=== PATIENT | male | born 1960 | race Caucasian/White ===

== ENCOUNTER 2020-04-05 13:28 | Inpatient (IN) ==
[~2020-04-05 13:28] MED LIST: KETAMINE HCL 50 MG/ML ML IV PRN; MIDAZOLAM 2 MG/2 ML VIAL IV SCH; PROPOFOL 200 MG/20 ML VIAL IV SCH
[2020-04-05] MEDS ORDERED: METHYLENE BLUE 50 MG/10 ML AMPUL ONE (14:39)
[2020-04-05] MEDS ORDERED: ONDANSETRON 4 MG/2 ML VIAL IV ONE (16:36)
[2020-04-05] MEDS ORDERED: HYDROmorphone 1 MG/ML SYRINGE IV ONE (16:36)
[2020-04-05] MEDS: LACTATED RINGERS 1,000 ML IV SCH (16:43)
[2020-04-05] MEDS ORDERED: ONDANSETRON 4 MG/2 ML VIAL ONE ×2 (16:46→19:20)
[2020-04-05] MEDS ORDERED: HYDROmorphone 1 MG/ML SYRINGE ONE (16:46)
[2020-04-05] MEDS ORDERED: LEVOFLOXACIN 500 MG/100 ML BAG IV ONE (17:16)
[2020-04-05] MEDS ORDERED: metroNIDAZOLE 500 MG/100 ML BAG IV ONE (17:16)
--- NOTE | 2020-04-05 17:17 | Colonoscopy Procedure Note ---
Colonoscopy Procedure Notes Procedure Information Patient information: Note initiated : 04/05/20 at 5:13 pm Service Date: 04.05.2020 Patient: Felix Mancera 59 y/o M admitted on for Colonoscopy. Pre-op diagnosis general: Screening. Post-op diagnosis general: Recurrent large villous adenoma. Procedure: Colonoscopy with Polypectomy Snare Procedure narrative: The procedure, alternatives and risks were discussed with the patient and the patient's questions were answered. With endoscopist administered intravenous sedation, the Olympus colonoscope was introduced into the rectum and advanced to the cecum. Ileocecal valve was identified, intubated, and several centimeters of the terminal ileum were examined. There was a recurrent large villous adenoma in the ascending colon. The base was injected with heptastarch and resected piecemeal with a snare using cautery. Hot biopsy forcep technique was required for piecemeal resection. APC coagulation was performed. The resection was complex. Assessment: Recurrent large villous adenoma. Unfortunately, the patient suffered a perforation following polypectomy. Dr. Cory Hung, surgeon, was consulted urgently and will admit the patient for right hemicolectomy. Image Colon: 1. Recurrent, large right colon villous adenoma.
--- NOTE | 2020-04-05 17:17 | Cat Scan Report ---
CLINICAL INFORMATION: Abdominal pain and distention following colonoscopy COMPARISON: None. TECHNIQUE: 0.625 mm helical slices were obtained from the mid heart through the subtrochanteric regions. Following reconstruction, 2.5 mm sagittal, coronal and axial reformatted images were processed and reviewed at bone and soft tissue windows.The exam was performed using radiation dose optimization techniques including, but not limited to, automated exposure control, adjustment of the mA and/or kV according to patient size and use of iterative reconstruction technique. FINDINGS: Lung bases show subsegmental atelectasis. No effusion. The visualized heart is normal. Abdominal images show the noncontrasted gallbladder and bile ducts, liver, both kidneys, adrenal glands, spleen, pancreas and aorta to be normal in size configuration and attenuation without focal lesion. There is no free fluid or adenopathy. Pelvic images show urinary bladder is normal. The prostate is mildly enlarged with central prostatic calcification. The seminal vesicles are normal. Large amount of free air seen throughout the anterior intraperitoneal cavity of the abdomen and pelvis. Findings are compatible with colonic perforation likely the transverse or mid sigmoid colon. Exact site of perforation is indeterminate. The remainder of the colon small bowel and stomach are normal. Bone windows show no osseous abnormality. IMPRESSION: 1. Large amount of free intraperitoneal air throughout the anterior abdomen and pelvis. Suspect colonic perforation likely the proximal sigmoid or the mid transverse segment. Site of perforation is not identified. Interpreted and Authenticated by: Virgilio Calero 04/05/20
[2020-04-05] MEDS ORDERED: HYDROmorphone 1 MG/ML SYRINGE IV PRN (17:40)
--- NOTE | 2020-04-05 18:19 | General Surg History&Physical ---
HPI History of Present Illness Patient information: Note initiated : 04/05/20 at 6:11 pm Service Date, if different from initiated Date: [] Patient: Felix Mancera a 59 y/o M admitted on for Colonoscopy. Chief Complaint: [perforated viscus] Chief complaint: free air of the abdomen History of present illness: Mr. Mancera is a 59 year old M WHO IS STATUS POST colonoscopy with biopsy of the right sided colon mass about 3 hours ago. He developed severe abdominal pain and a follow-up CT shows massive free air. 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 He was told to follow-up in 3 years. He had follow-up colonoscopy done today and the tumor was larger. He had multiple biopsies done and this resulted in the perforation. It was recognized and confirmed by CT. Patient is counseled for emergent laparotomy with right colectomy. 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) Hearing loss (Chronic) Multiple allergies (Chronic) Capsulitis (Chronic) Depression (Chronic) Testosterone insufficiency (Chronic) H/O esophageal reflux (Chronic) Hypothyroidism (Chronic) Hyperlipidemia (Chronic) History of colonoscopy (Chronic Unknown) Depressive disorder (Chronic) MARVA (generalized anxiety disorder) (Chronic) Medical History Alcohol dependence (Resolved) Capsulitis (Chronic) Depressive disorder (Chronic) MARVA (generalized anxiety disorder) (Chronic) H/O esophageal reflux (Chronic) Hearing loss (Chronic) Hyperlipidemia (Chronic) Hypothyroidism (Chronic) Multiple allergies (Chronic) Testosterone insufficiency (Chronic) Surgical History History of colonoscopy (Chronic Unknown) 08/25/2012 Polyps Family History Father Alzheimer's disease Grandfather (paternal) Alzheimer's disease Mother Lymphoma, Onset Age: 67 Diabetes Heart disease Cancer Thyroid disorder Leukemia Grandfather Heart disease Maternal Sister Thyroid disorder Brother Stroke intracerebral bleed, alcoholic and smoker, age 61 Social History marital status: life partner occupational status: employed occupation: [employer] Controls physical activity: walking smoking status: Never smoker alcohol intake frequency: 0-2 drinks per day substance use type: does not use MEDS/ALLERGIES Home Medications and Allergies Home Medications Medication Instructions Recorded Confirmed Type vitamin E 200 unit capsule 200 unit PO QDAY 07/30/15 04/05/20 History atorvastatin 10 mg tablet 10 mg PO QDAY #90 tab 04/20/17 04/05/20 Rx bupropion HCl 150 mg tablet,12 hr 150 mg PO QDAY #90 tab 04/20/17 04/05/20 Rx sustained-release alprazolam 0.5 mg tablet 0.5 mg PO TID PRN #60 tab 06/15/17 04/05/20 Rx testosterone 50 mg/5 gram (1 %) 1 packet TRANSDERMA QAM #60 g 04/12/18 04/05/20 Rx transdermal gel levothyroxine 88 mcg tablet 88 mcg PO QDAY #90 tab 04/18/18 04/05/20 Rx Allergies Allergy/AdvReac Type Severity Reaction Status Date / Time Penicillins Allergy Unknown Other Verified 04/05/20 17:59 sertraline AdvReac Intermediate Unknown Uncoded 04/05/20 17:59 Physical Examination Vital Signs Vital signs: Temp Pulse Resp BP Pulse Ox 99.1 F H 86 16 131/71 94 04/05/20 14:20 04/05/20 17:50 04/05/20 17:50 04/05/20 17:50 04/05/20 17:50 General physical appearance General physical exam: well developed, well nourished, severe distress and severe pain Eyes Eye exam: PERRL and normal ocular movement ENT ENT exam: normal pinna, normal nares, normal mucosa and decreased hearing Head Head exam IM: Present atraumatic, normal inspection and normocephalic Neck Neck exam: no masses, no bruits, trachea midline, no lymphadenopathy and no venous distension Cardiovascular Cardiovascular exam IM: Present normal rate and rhythm, RRR, +S1 and +S2; Absent gallop and JVD Respiratory Respiratory exam: normal expansion, normal respiratory effort and clear to auscultation Abdomen Abdomen: Present tender and guarding (diffusely distended abdomen with tenderness and guarding and hypoactive bowel sounds) Integumentary Integumentary: Present no rash, no growths and no abnormal pigmentation Neurologic Neurologic: Present normal coordination and normal sensation Musculoskeletal Musculoskeletal: Present normal gait and normal posture Psychiatric Psychiatric: Present oriented to time, oriented to person, oriented to place, speech is normal and memory intact Results Labs Labs: All other labs normal. A/P Assessment and plan (1) Perforation of colon as colonoscopy complication: Status: Acute (2) Depression: Status: Chronic Qualifiers: Depression Type: major depressive disorder Major depression recurrence: recurrent Active/Remission status: in partial remission Qualified Code(s): F33.41 - Major depressive disorder, recurrent, in partial remission (3) H/O esophageal reflux: Status: Chronic (4) MARVA (generalized anxiety disorder): Status: Chronic Narrative A/P Narrative: patient is counseled for exploratory laparotomy. He has been given preoperative antibiotics. Preoperative labs, chest x-ray and EKG have been ordered. Time Spent With Patient Time: Total time spent is greater than 50% in coordination of care (as documented) at patient's floor/unit and/or counseling patient:
--- NOTE | 2020-04-05 18:51 | XRay Report ---
CLINICAL INFORMATION: PREOP COMPARISON: None. FINDINGS: Heart size, mediastinum and pulmonary vessels are normal. Is minor bibasilar atelectasis. No effusion. Large amount of subdiaphragmatic free air seen as before IMPRESSION: No acute pulmonary disease. Large amount of free intraperitoneal air compatible with colonic rupture Interpreted and Authenticated by: Virgilio Calero 04/05/20
[2020-04-05] MEDS ORDERED: PHENYLEPHRINE 10 MG/ML VIAL ONE (19:20)
[2020-04-05] MEDS ORDERED: ROCURONIUM 10 MG/ML ML IV ONE (19:20)
[2020-04-05] MEDS ORDERED: DEXAMETHASONE 10 MG/ML VIAL ONE (19:20)
[2020-04-05] MEDS ORDERED: KETAMINE 100 MG/ML ML ONE (19:20)
[2020-04-05] MEDS ORDERED: PROPOFOL 200 MG/20 ML VIAL IV ONE (19:20)
[2020-04-05] MEDS ORDERED: SUCCINYLCHOLINE 20 MG/ML ML IV ONE (19:20)
[2020-04-05] MEDS ORDERED: KETOROLAC 30 MG/ML VIAL ONE (19:20)
[2020-04-05] MEDS ORDERED: SUGAMMADEX SODIUM 200 MG/2 ML VIAL IV ONE (19:20)
[2020-04-05] MEDS ORDERED: LIDOCAINE HCL/PF 100 MG/5 ML SYRINGE IV ONE (19:20)
[2020-04-05] MEDS ORDERED: GLYCOPYRROLATE 0.2 MG/ML VIAL IV ONE (19:20)
[2020-04-05] MEDS ORDERED: MIDAZOLAM 5 MG/5 ML VIAL ONE (19:20)
[2020-04-05] MEDS ORDERED: fentaNYL 250 MCG/5 ML VIAL IV ONE (19:20)
[2020-04-05 19:31] LABS: Basophils # (Auto) 0.04 K/mcL (0.00-0.20); Basophils % (Auto) 0.3 % (0.0-2.0); Eosinophils # (Auto) 0.02 K/mcL (0.00-0.70); Eosinophils % (Auto) 0.2 % (0.0-7.0); Hemoglobin 19.2 g/dL (13.5-16.5); Lymphocytes # (Auto) 1.33 K/mcL (1.50-4.80); Lymphocytes % (Auto) 11.2 % (15.0-49.0); Mean Cell Volume 92.7 fL (80.0-100.0); Mean Corpuscular HGB Conc 33.1 g/dL (31.0-36.0); Mean Platelet Volume 10.4 fL (7.4-10.4); Monocytes # (Auto) 0.57 K/mcL (0.10-0.90); Monocytes % (Auto) 4.8 % (1.0-12.0); Neutrophils % (Auto) 83.5 % (38.0-78.0); Platelet Count 198 K/mcL (140-440); RBC 6.26 M/mcL (4.50-5.90); WBC 11.9 K/mcL (4.5-11.0)
[2020-04-05 19:41] LABS: Blood Urea Nitrogen 12 mg/dL (8-23); Calcium 9.4 mg/dL (8.6-10.4); Carbon Dioxide 25 mmol/L (22-30); Chloride 102 mmol/L (96-108); Glomerular Filtration Rate 49; Glucose 143 mg/dL (70-105)
[2020-04-05] MEDS ORDERED: ONDANSETRON 4 MG/2 ML VIAL IV PRN (21:23)
--- NOTE | 2020-04-05 21:23 | Brief Operative Note ---
Brief Operative Note Date of procedure: 04/05/20 Pre-op diagnosis: cecal perforation Post-op diagnosis: other (cecal perforation) Procedure: right colectomy Grafts/Implants: No (#10 NINFA DRAIN ) Anesthesia: GETA Findings: LARGE PERFORATION OF LATERAL CECUM ABOVE ILEOCECAL VALVE Complications: none Surgeon: Rosario Hung Estimated blood loss (cc): 50 Specimens Removed/Pathology: other (RIGHT COLON) Condition: stable Disposition: PACU
[2020-04-05] MEDS ORDERED: FLUMAZENIL 0.1 MG/ML ML IV PRN (21:28)
[2020-04-05] MEDS ORDERED: IPRATROPIUM/ALBUTEROL 3 ML AMPUL.NEB NEB PRN (21:28)
[2020-04-05] MEDS ORDERED: METHOCARBAMOL 1,000 MG/10 ML VIAL IV PRN (21:28)
[2020-04-05] MEDS ORDERED: NALOXONE HCL 0.4 MG/ML VIAL IV PRN (21:28)
[2020-04-05] MEDS ORDERED: PROMETHAZINE 25 MG/ML VIAL IV PRN (21:28)
[2020-04-05] MEDS ORDERED: LACTATED RINGERS 250 ML IV PRN (21:28)
[2020-04-05] MEDS ORDERED: ACETAMINOPHEN 1,000 MG/100 ML BOTTLE IV ONE (21:28)
[2020-04-05] MEDS ORDERED: 0.9 % SODIUM CHLORIDE 1,000 ML IV SCH (21:30)
[2020-04-05] MEDS ORDERED: LACTATED RINGERS 1,000 ML IV SCH (21:30)
[2020-04-05] MEDS ORDERED: IPRATROPIUM/ALBUTEROL 3 ML AMPUL.NEB NEB ONE (21:37)
[2020-04-05] MEDS: fentaNYL 100 MCG/2 ML VIAL IV PRN ×7 (21:38→22:37)
[2020-04-05] MEDS ORDERED: fentaNYL 100 MCG/2 ML VIAL IV ONE (21:44)
[2020-04-05] MEDS ORDERED: LEVOFLOXACIN 250 MG/50 ML BAG IV ONE (22:00)
[2020-04-05] MEDS ORDERED: LABETALOL 5 MG/ML ML IV PRN (22:20)
[2020-04-05] MEDS ORDERED: METOPROLOL TARTRATE 5 MG/5 ML VIAL IV PRN (22:20)
[2020-04-05] MEDS ORDERED: METOPROLOL TARTRATE 5 MG/5 ML VIAL IV ONE (22:32)
[2020-04-05] MEDS: 0.9 % SODIUM CHLORIDE 10 ML SYRINGE IV SCH (23:55)
[2020-04-05] MEDS: 0.9 % SODIUM CHLORIDE 1,000 ML IV SCH (23:55)
[2020-04-06] MEDS: METOCLOPRAMIDE 10 MG/2 ML VIAL IV SCH ×5 (00:35→23:54)
[2020-04-06] MEDS: metroNIDAZOLE 500 MG/100 ML BAG IV SCH ×5 (00:36→23:53)
[2020-04-06] MEDS: LACTATED RINGERS 1,000 ML IV SCH (01:08)
[2020-04-06] MEDS: 0.9 % SODIUM CHLORIDE 10 ML SYRINGE IV SCH ×3 (05:55→20:16)
[2020-04-06] MEDS: 0.9 % SODIUM CHLORIDE 1,000 ML IV SCH ×4 (05:55→21:00)
[2020-04-06 07:36] LABS: Basophils # (Auto) 0.01 K/mcL (0.00-0.20); Basophils % (Auto) 0.1 % (0.0-2.0); Eosinophils # (Auto) 0 K/mcL (0.00-0.70); Eosinophils % (Auto) 0 % (0.0-7.0); Hematocrit 50.7 % (41.0-55.0); Hemoglobin 16.7 g/dL (13.5-16.5); Lymphocytes # (Auto) 0.63 K/mcL (1.50-4.80); Lymphocytes % (Auto) 3.5 % (15.0-49.0); Mean Cell Volume 92.2 fL (80.0-100.0); Mean Corpuscular HGB Conc 32.9 g/dL (31.0-36.0); Monocytes # (Auto) 0.64 K/mcL (0.10-0.90); Monocytes % (Auto) 3.5 % (1.0-12.0); Neutrophils % (Auto) 92.9 % (38.0-78.0); Platelet Count 161 K/mcL (140-440); WBC 18.3 K/mcL (4.5-11.0)
[2020-04-06 08:36] LABS: ALT/SGPT 13 U/L (<40); AST/SGOT 18 U/L (<40); Albumin 3.5 gm/dL (3.2-5.2); Albumin/Globulin Ratio 1.5 (1.0-2.3); Alkaline Phosphatase 48 U/L (39-117); Bilirubin,Direct 0.4 mg/dL (<0.3); Bilirubin,Total 1.2 mg/dL (0.1-1.0); Blood Urea Nitrogen 20 mg/dL (8-23); Calcium 8.2 mg/dL (8.6-10.4); Carbon Dioxide 21 mmol/L (22-30); Chloride 105 mmol/L (96-108); Globulin 2.4 gm/dL (2.2-3.7); Glomerular Filtration Rate 46; Glucose 159 mg/dL (70-105); Lactate Dehydrogenase 210 U/L (135-225); Phosphorous 1.8 mg/dL (2.5-4.5); Triglycerides 50 mg/dL (<150); Uric Acid 7.1 mg/dL (2.5-8.0)
[2020-04-06] MEDS: HYDROmorphone 1 MG/ML SYRINGE IV PRN ×5 (09:44→23:54)
[2020-04-06] MEDS ORDERED: LEVOFLOXACIN 750 MG/150 ML BAG IV SCH (12:00)
--- NOTE | 2020-04-06 14:49 | General Surgery Progress Note ---
SUBJECTIVE Subjective Patient information: Note initiated : 04/06/20 at 2:48 pm Service Date, if different from initiated Date: [] Patient: Felix Mancera 59 y/o M admitted on 04/05/20 for Colonoscopy. Chief Complaint: [] Principal diagnosis: cecal perforation Interval history: patient is stable; vital signs have been good.he does not have any respiratory difficulty. His pain is controlled. He is advised to become more active and sitting up in the chair. He is also advised to use his is spirometer. White blood count 18.3, phosphorus 1.8, potassium 4.5, magnesium 2, BUN 20, creatinine 1.6. Constitutional Vitals: Vital Signs Temp Pulse Resp BP Pulse Ox 98.0 F 102 H 18 113/61 92 04/06/20 08:00 04/06/20 08:00 04/06/20 08:00 04/06/20 08:00 04/06/20 08:00 Period Temp Pulse Resp BP Sys/Kimble Pulse Ox Last 24 Hr 98.0 F-99.8 F 68-110 10-21 90-177/56-141 10-98 Intake and Output 04/06/20 04/06/20 04/06/20 05:59 13:59 21:59 Intake Total 302 1100 Output Total 180 200 Balance 122 900 Weight 211 lb 2 oz Intake & Output: Intake & Output 04/06/20 04/06/20 04/06/20 05:59 13:59 21:59 Intake Total 302 1100 Output Total 180 200 Balance 122 900 Weight 211 lb 2 oz Intake: IV 302 1100 Sodium Chloride 0.9% 1,000 ml @ 102 1000 150 mls/hr IV .Q6H40M [facility] Rx#: [id number] Tube Feeding 0 0 Output: Gastric Drainage 100 200 Right Nare 100 200 Drainage 40 RLQ ABD 40 Drainage 40 RLQ ABD 40 Other: Urine Appearance Clear Urine Color Dark Asuncion Urine Odor Strong Head Head exam: Present atraumatic, normal inspection and normocephalic Eye Eye exam: Present EOMI Pupils: Present PERRL ENT ENT exam: Present mucous membranes moist, normal exam and normal oropharynx Neck Neck exam: Present full ROM and normal inspection Respiratory Respiratory exam: Present normal respiratory exam and CTAB Cardiovascular Cardiovascular exam: Present normal rate and rhythm, RRR, +S1 and +S2; Absent JVD GI/Abdominal GI/Abdominal exam: Present normal bowel sounds, soft, distended and tenderness Extremities Exam Extremities exam: Present full ROM, normal inspection and neurovascular intact Back Exam Back exam: Present full ROM and normal inspection Neurological Exam Neurological exam: Present CN II-XII intact, normal gait, oriented X3 and reflexes normal; Absent motor sensory deficit Psychiatric Psychiatric exam: Present depressed, normal affect and normal mood Skin Skin exam: Present intact; Absent rash and urticaria A/P Assessment and plan (1) Perforation of colon as colonoscopy complication: Status: Acute (2) Depression: Status: Chronic Qualifiers: Depression Type: major depressive disorder Major depression recurrence: recurrent Active/Remission status: in partial remission Qualified Code(s): F33.41 - Major depressive disorder, recurrent, in partial remission (3) MARVA (generalized anxiety disorder): Status: Chronic Narrative A/P Narrative: patient is clinically stable. Will continue supportive care. Phosphorus will be replaced. Time Spent With Patient Time: Total time spent is greater than 50% in coordination of care (as documented) at patient's floor/unit and/or counseling patient:
[2020-04-06] MEDS: ACETAMINOPHEN 1,000 MG/100 ML BOTTLE IV PRN ×2 (14:51→21:01)
[2020-04-06] MEDS ORDERED: POTASSIUM PHOSPHATE 40 MEQ in DEXTROSE 5% IN WATER 500 ML IV ONE (15:00)
[2020-04-07] MEDS ORDERED: 0.9 % SODIUM CHLORIDE 250 ML IV SCH ×3 (01:45→07:35)
[2020-04-07] MEDS: HYDROmorphone 1 MG/ML SYRINGE IV PRN ×5 (02:07→23:17)
--- NOTE | 2020-04-07 02:32 | General Surgery Progress Note ---
SUBJECTIVE Subjective Patient information: Note initiated : 04/07/20 at 2:30 am Service Date, if different from initiated Date: [] Patient: Felix Mancera 59 y/o M admitted on 04/05/20 for Colonoscopy. Chief Complaint: [] Principal diagnosis: cecal perforation;post operative hemorrhage Interval history: I was contacted by the charge nurse because patient had had increased output of heavy bloody drainage through his [place] which is in the right gutter. When seen earlier today he had some purulent and serosanguineous drainage. Since 2200 hrs. He has documented 600 cc of her blood. He has also become tachycardic. Blood pressure is 95/60. Patient is advised that he needs to be reexplored for control of bleeding. He had a hemoglobin of 16, so I will hold off given him O- blood, but he he has been typed and cross for 4 units of packed red cells. His INR is normal. Patient does not complain of any increased pain. Constitutional Vitals: Vital Signs Temp Pulse Resp BP Pulse Ox 97.7 F 136 H 16 95/60 92 04/07/20 02:00 04/07/20 02:00 04/07/20 02:00 04/07/20 02:00 04/07/20 02:00 Period Temp Pulse Resp BP Sys/Kimble Pulse Ox Last 24 Hr 97.7 F-99.7 F 95-155 14-18 88-144/60-78 86-96 Intake and Output 04/06/20 04/06/20 04/07/20 13:59 21:59 05:59 Intake Total 1100 1590 Output Total 921 303 7829 Balance 900 1160 -1480 Weight 209 lb 1.6 oz Patient Weight 04/07/20 05:59 Weight 209 lb 1.6 oz Intake & Output: Intake & Output 04/06/20 04/06/20 04/07/20 13:59 21:59 05:59 Intake Total 1100 1590 Output Total 880 628 6369 Balance 900 1160 -1480 Weight 209 lb 1.6 oz Intake: IV 1100 1350 Sodium Chloride 0.9% 1,000 ml @ 1000 1000 150 mls/hr IV .Q6H40M [facility] [place] Rx#: [id number] Oral 240 Tube Feeding 0 0 Output: Gastric Drainage 200 400 200 Right Nare 200 400 200 Drainage 605 RLQ ABD 605 Drainage 30 RLQ ABD 30 Urine Catheter Amount 475 Void Amount 200 Other: Urine Appearance Clear Clear Uretheral ([place]) Clear Urine Color Dark Asuncion Dark Asuncion Uretheral ([place]) Dark Asuncion Urine Odor Strong Eye Eye exam: Present EOMI Pupils: Present PERRL ENT ENT exam: Present mucous membranes moist, normal exam and normal oropharynx Neck Neck exam: Present full ROM and normal inspection Respiratory Respiratory exam: Present normal respiratory exam and CTAB Cardiovascular Cardiovascular exam: Present normal rate and rhythm, RRR, +S1 and +S2; Absent JVD GI/Abdominal GI/Abdominal exam: Present normal bowel sounds, distended and hypoactive bowel sounds Additional comments: bloody drainage from [place]More[place] in right lower quadrant. Extremities Exam Extremities exam: Present full ROM, normal inspection and neurovascular intact Neurological Exam Neurological exam: Present alert, CN II-XII intact and normal gait Psychiatric Psychiatric exam: Present normal affect and normal mood Skin Skin exam: Present normal color A/P Assessment and plan (1) Postoperative hemorrhage: Status: Acute Qualifiers: Surgical complication system/body Area: digestive system Procedure type: digestive system Qualified Code(s): K91.840 - Postprocedural hemorrhage of a digestive system organ or structure following a digestive system procedure (2) Perforation of colon as colonoscopy complication: Status: Acute Narrative A/P Narrative: patient is counseled for emergency exploratory laparotomy. We have 2 units of O- blood available, but since his hemoglobin was 16 and earlier today, will hold off to see what his actual hemoglobin is. He's been typed and crossed for 4 units of packed red cells and will be transfused as needed. Normal saline 1000 cc is given at an open rate. Time Spent With Patient Time: Total time spent is greater than 50% in coordination of care (as documented) at patient's floor/unit and/or counseling patient:
[2020-04-07 02:41] LABS: POC INR 1.6 (0.8-1.2); POC Pro Time 18.8 sec (11.9-14.5)
[2020-04-07] MEDS ORDERED: 0.9 % SODIUM CHLORIDE 1,000 ML IV ONE (02:43)
[2020-04-07] MEDS: 0.9 % SODIUM CHLORIDE 1,000 ML IV SCH ×5 (02:46→19:44)
[2020-04-07 02:57] LABS: POC Calcium, Ionized 1.01 mmEq/L (1.16-1.32); POC Creatinine 2.3 mg/dL (0.6-1.2); POC Potassium 5.2 mEql/L (3.3-5.1)
[2020-04-07 03:14] LABS: Hemoglobin 13.4 g/dL (13.5-16.5)
[2020-04-07] MEDS ORDERED: PHENYLEPHRINE 10 MG/ML VIAL ONE (03:30)
[2020-04-07] MEDS ORDERED: TRANEXAMIC ACID 1,000 MG/10 ML VIAL IV ONE (03:30)
[2020-04-07] MEDS ORDERED: KETAMINE 100 MG/ML ML ONE (03:30)
[2020-04-07] MEDS ORDERED: fentaNYL 250 MCG/5 ML VIAL IV ONE (03:30)
[2020-04-07] MEDS ORDERED: VASOPRESSIN 20 UNIT/ML VIAL ONE (03:30)
[2020-04-07] MEDS ORDERED: ONDANSETRON 4 MG/2 ML VIAL ONE (03:30)
[2020-04-07] MEDS ORDERED: PROPOFOL 200 MG/20 ML VIAL IV ONE (03:30)
[2020-04-07] MEDS ORDERED: HETASTARCH 6% 500 ML BAG IV ONE (03:30)
[2020-04-07] MEDS ORDERED: GLYCOPYRROLATE 0.2 MG/ML VIAL IV ONE (03:30)
[2020-04-07] MEDS ORDERED: DEXAMETHASONE 10 MG/ML VIAL ONE (03:30)
[2020-04-07] MEDS ORDERED: ROCURONIUM 10 MG/ML ML IV ONE (03:30)
[2020-04-07] MEDS ORDERED: LIDOCAINE HCL/PF 100 MG/5 ML SYRINGE IV ONE (03:30)
[2020-04-07] MEDS ORDERED: LABETALOL 5 MG/ML ML IV PRN (05:01)
[2020-04-07] MEDS ORDERED: fentaNYL 100 MCG/2 ML VIAL IV PRN (05:01)
[2020-04-07] MEDS ORDERED: BENZOCAINE/MENTHOL 1 LOZENGE PO PRN (05:01)
[2020-04-07] MEDS ORDERED: HYDROmorphone 0.5 MG/0.5 ML SYRINGE IV PRN (05:01)
[2020-04-07] MEDS ORDERED: IPRATROPIUM/ALBUTEROL 3 ML AMPUL.NEB NEB PRN (05:01)
[2020-04-07] MEDS ORDERED: NALOXONE HCL 0.4 MG/ML VIAL IV PRN (05:01)
[2020-04-07] MEDS ORDERED: METHOCARBAMOL 1,000 MG/10 ML VIAL IV PRN (05:01)
[2020-04-07] MEDS ORDERED: FLUMAZENIL 0.1 MG/ML ML IV PRN (05:01)
[2020-04-07] MEDS ORDERED: LACTATED RINGERS 250 ML IV PRN (05:01)
[2020-04-07] MEDS ORDERED: METOPROLOL TARTRATE 5 MG/5 ML VIAL IV PRN (05:01)
[2020-04-07] MEDS ORDERED: LACTATED RINGERS 1,000 ML IV SCH (05:15)
[2020-04-07 05:39] LABS: POC Blood Urea Nitrogen 29 mg/dL (6-20); POC CO2 24 mmol/L (22-30); POC Chloride 107 mEq/L (96-108); POC Creatinine 2.2 mg/dL (0.6-1.2); POC Glucose, Random 156 mg/dL (70-105); POC Hematocrit 28 % (41-55); POC Potassium 6.1 mEql/L (3.3-5.1); POC Sodium 137 mEq/L (133-145)
--- NOTE | 2020-04-07 06:12 | Brief Operative Note ---
Brief Operative Note Date of procedure: 04/07/20 Pre-op diagnosis: POSTOPERATIVE HEMORRHAGE;HEMORRHAGIC ANEMIA Post-op diagnosis: other (POSTOPERATIVE ANEMIA ;HEMORRHAGIC ANEMIA ) Procedure: EXPLORATORY LAPAROTOMY WITH EVACUATION OF CLOT(750CC) Grafts/Implants: No (NINFA DRAIN X2) Anesthesia: GETA Findings: MAJOR CLOT OVER OMENTUM,IN LOWER ABDOMEN 'EXTENDING INTO PELVIS AND IN RIGHT GUTTER; PERIHEPATIC CLOT OVER RIGHT LOBE OF LIVER ;SMALL AMOUNT OF UNCLOTTED BLOOD IN LEFT UPPER QUADRANT WITH SMALL AMOUNT AROUND SPLEEN ;INTACT ANASTOMOSIS WITHOUT MAJOR BLEEDING NEAR ANASTOMOSIS ;MODERATE CLOT IN RIGHT GUTTER EXTENDING UP TO HEPATIC FLEXURE BUT NO FRESH BLEEDING ENCOUNTERED ALL OPERATIVE SPACES WERE EXPLORED BUT NO ACTIVE BLEEDING; ANASTOMOSIS OVERSEWN AND MESENTERIC DEFECT CLOSURE WAS REINFORCED;ALL STAPLED AND CAUTERIZED SURFACES WERE SUTURED FOR ASSURANCE; ENTIRE OMENTUM INSPECTED AND COPIOUSLY IRRIGATED ;RUQ,RIGHT GUTTER AND LUQ(PERISPLENIC AREA )DRAINED .HEMORRHAGIC INDURATION OF ANTIMESENTERIC SURFACE OF SPLENIC FLEXUREOF COLON ,AREA OF MID SIGMOID AND TRANSVERSE COLON BUT NO HEMATOMA OR ACTIVE BLEEDING.PERITONEAL CAVITY TOTALLY EXPLORED X 2HR WITHOUT FINDING OF ACTIVE BLEEDING. Complications: none Surgeon: Rosario Hung Estimated blood loss (cc): 50 Specimens Removed/Pathology: none sent Condition: stable Disposition: PACU
[2020-04-07] MEDS ORDERED: METOPROLOL TARTRATE 5 MG/5 ML VIAL IV ONE (06:25)
[2020-04-07] MEDS ORDERED: IPRATROPIUM/ALBUTEROL 3 ML AMPUL.NEB NEB ONE (06:53)
[2020-04-07 07:21] LABS: ALT/SGPT 9 U/L (<40); AST/SGOT 17 U/L (<40); Albumin/Globulin Ratio 1.1 (1.0-2.3); Alkaline Phosphatase 31 U/L (39-117); Bilirubin,Direct 0.4 mg/dL (<0.3); Bilirubin,Total 0.6 mg/dL (0.1-1.0); Blood Urea Nitrogen 28 mg/dL (8-23); Calcium 6.7 mg/dL (8.6-10.4); Carbon Dioxide 23 mmol/L (22-30); Chloride 107 mmol/L (96-108); Globulin 1.8 gm/dL (2.2-3.7); Glomerular Filtration Rate 33; Glucose 161 mg/dL (70-105); Lactate Dehydrogenase 113 U/L (135-225); Phosphorous 3.9 mg/dL (2.5-4.5); Triglycerides 65 mg/dL (<150); Uric Acid 5.9 mg/dL (2.5-8.0)
[2020-04-07] MEDS ORDERED: DEXTROSE 50% 50 ML VIAL IV ONE (07:29)
[2020-04-07] MEDS ORDERED: INSULIN REGULAR, HUMAN 1 UNIT/0.01 ML UNIT SQ ONE (07:31)
[2020-04-07] MEDS ORDERED: PROMETHAZINE 25 MG/ML VIAL IV PRN (07:35)
[2020-04-07] MEDS ORDERED: ONDANSETRON 4 MG/2 ML VIAL IV PRN (07:35)
[2020-04-07 07:47] LABS: Basophils # (Auto) 0.02 K/mcL (0.00-0.20); Basophils % (Auto) 0.1 % (0.0-2.0); Eosinophils # (Auto) 0 K/mcL (0.00-0.70); Eosinophils % (Auto) 0 % (0.0-7.0); Hematocrit 30.9 % (41.0-55.0); Hemoglobin 9.9 g/dL (13.5-16.5); Lymphocytes # (Auto) 0.64 K/mcL (1.50-4.80); Lymphocytes % (Auto) 3.5 % (15.0-49.0); Mean Cell Volume 96.9 fL (80.0-100.0); Mean Platelet Volume 11.7 fL (7.4-10.4); Monocytes # (Auto) 0.89 K/mcL (0.10-0.90); Monocytes % (Auto) 4.8 % (1.0-12.0); Neutrophils % (Auto) 91.6 % (38.0-78.0); Platelet Count 131 K/mcL (140-440); RBC 3.19 M/mcL (4.50-5.90); Red Cell Distribution Width 12.1 % (11.5-14.5); WBC 18.5 K/mcL (4.5-11.0)
[2020-04-07] MEDS: metroNIDAZOLE 500 MG/100 ML BAG IV SCH ×4 (08:23→19:42)
[2020-04-07] MEDS: ACETAMINOPHEN 1,000 MG/100 ML BOTTLE IV PRN ×3 (09:37→23:24)
[2020-04-07] MEDS: 0.9 % SODIUM CHLORIDE 10 ML SYRINGE IV SCH ×3 (11:28→20:53)
[2020-04-07] MEDS: METOCLOPRAMIDE 10 MG/2 ML VIAL IV SCH ×4 (11:28→23:31)
[2020-04-07 13:35] LABS: ALT/SGPT 13 U/L (<40); AST/SGOT 29 U/L (<40); Alkaline Phosphatase 28 U/L (39-117); Bilirubin,Direct 0.5 mg/dL (<0.3); Bilirubin,Total 1.2 mg/dL (0.1-1.0); Blood Urea Nitrogen 29 mg/dL (8-23); Calcium 7.1 mg/dL (8.6-10.4); Carbon Dioxide 19 mmol/L (22-30); Chloride 108 mmol/L (96-108); Globulin 2.1 gm/dL (2.2-3.7); Glomerular Filtration Rate 40; Glucose 169 mg/dL (70-105); Lactate Dehydrogenase 211 U/L (135-225); Phosphorous 1.6 mg/dL (2.5-4.5); Triglycerides 60 mg/dL (<150); Uric Acid 6.4 mg/dL (2.5-8.0)
[2020-04-07 15:06] LABS: Basophils # (Auto) 0.01 K/mcL (0.00-0.20); Basophils % (Auto) 0.1 % (0.0-2.0); Eosinophils # (Auto) 0.35 K/mcL (0.00-0.70); Eosinophils % (Auto) 2.3 % (0.0-7.0); Hematocrit 35.6 % (41.0-55.0); Hemoglobin 11.8 g/dL (13.5-16.5); Lymphocytes # (Auto) 0.46 K/mcL (1.50-4.80); Lymphocytes % (Auto) 3.1 % (15.0-49.0); Mean Cell Volume 92.7 fL (80.0-100.0); Mean Corpuscular HGB Conc 33.1 g/dL (31.0-36.0); Mean Platelet Volume 11.3 fL (7.4-10.4); Monocytes # (Auto) 0.78 K/mcL (0.10-0.90); Monocytes % (Auto) 5.2 % (1.0-12.0); Neutrophils % (Auto) 89.3 % (38.0-78.0); Platelet Count 125 K/mcL (140-440); RBC 3.84 M/mcL (4.50-5.90); Red Cell Distribution Width 13.7 % (11.5-14.5); WBC 14.9 K/mcL (4.5-11.0)
--- NOTE | 2020-04-07 15:31 | General Surgery Progress Note ---
SUBJECTIVE Subjective Patient information: Note initiated : 04/07/20 at 3:29 pm Service Date, if different from initiated Date: [] Patient: Felix Mancera 59 y/o M admitted on 04/05/20 for Colonoscopy. Chief Complaint: [] Principal diagnosis: cecal perforation;post operative hemorrhage Interval history: patient has been stable for the past 8 hours. There is only 70 cc of thin sanguinous fluid total through his drains. He has received 2 units of packed red cells and is just starting to receive his FFP. He states that he feels much better. Constitutional Vitals: Vital Signs Temp Pulse Resp BP Pulse Ox 100.4 F H 114 H 14 112/66 92 04/07/20 15:02 04/07/20 15:02 04/07/20 15:02 04/07/20 15:02 04/07/20 15:02 Period Temp Pulse Resp BP Sys/Kimble Pulse Ox Last 24 Hr 97.7 F-101.7 F 97-155 8-18 87-148/52-113 88-96 Intake and Output 04/07/20 04/07/20 04/07/20 05:59 13:59 21:59 Intake Total 100 5859.0909 Output Total 1580 1040 Balance -1480 4819.0909 Intake & Output: Intake & Output 04/07/20 04/07/20 04/07/20 05:59 13:59 21:59 Intake Total 100 5859.0909 Output Total 1580 1040 Balance -1480 4819.0909 Intake: IV 100 2809.0909 Sodium Chloride 0.9% 1,000 ml @ 2000 Wide Open IV [facility] Rx#: [id number] Potassium Phosphate 40 Meq In 509.0909 Dextrose 5% in Water 500 ml @ 127.273 mls/hr IV [facility] Rx#: [id number] Tube Feeding 0 Blood Product 850 IV - Manual Only 2200 Output: Gastric Drainage 200 Right Nare 200 Drainage 605 RLQ ABD 605 Drainage 100 90 RLQ ABD 100 90 Urine Catheter Amount 475 950 Void Amount 200 Other: Urine Appearance Clear Clear Uretheral ([place]) Clear Urine Color Dark Asuncion Light Asuncion Uretheral ([place]) Dark Asuncion Urine Odor Strong Neck Neck exam: Present full ROM and normal inspection Respiratory Respiratory exam: Present normal respiratory exam; Absent rales, rhonchi and wheezes Cardiovascular Cardiovascular exam: Present RRR and tachycardia (heart rate 120); Absent JVD GI/Abdominal GI/Abdominal exam: Present diminished bowel sounds Additional comments: mild oozing from incision, but otherwise unremarkable; few active bowel sounds Extremities Exam Extremities exam: Present full ROM, normal inspection and neurovascular intact; Absent pedal edema Neurological Exam Neurological exam: Present CN II-XII intact, normal gait, oriented X3 and reflexes normal Psychiatric Psychiatric exam: Present normal affect and normal mood A/P Assessment and plan (1) Postoperative hemorrhage: Status: Acute Qualifiers: Surgical complication system/body Area: digestive system Procedure type: digestive system Qualified Code(s): K91.840 - Postprocedural hemorrhage of a digestive system organ or structure following a digestive system procedure (2) Perforation of colon as colonoscopy complication: Status: Acute Narrative A/P Narrative: patient is clinically stable. There is only 70 cc of output through his drains over the past 8 hours. He has not received his FFP so far. We will check a panel of low bleeding parameters including von Willebrand's factor, vitamin K level, factor VIII level and follow-up on PT, PTT and INR. Time Spent With Patient Time: Total time spent is greater than 50% in coordination of care (as documented) at patient's floor/unit and/or counseling patient:
[2020-04-07 19:43] LABS: Partial Thromboplastin Time 29.8 sec (20.0-37.0)
[2020-04-07 19:44] LABS: INR 1.3 (0.9-1.1); Prothrombin Time 16.2 sec (11.9-14.5)
[2020-04-08] MEDS: metroNIDAZOLE 500 MG/100 ML BAG IV SCH ×4 (02:00→20:17)
[2020-04-08] MEDS: HYDROmorphone 1 MG/ML SYRINGE IV PRN ×6 (04:04→22:17)
[2020-04-08] MEDS: 0.9 % SODIUM CHLORIDE 1,000 ML IV SCH ×4 (04:46→18:04)
[2020-04-08] MEDS: 0.9 % SODIUM CHLORIDE 10 ML SYRINGE IV SCH ×3 (06:00→20:18)
[2020-04-08] MEDS: METOCLOPRAMIDE 10 MG/2 ML VIAL IV SCH ×4 (06:00→23:55)
[2020-04-08 06:33] LABS: Basophils # (Auto) 0 K/mcL (0.00-0.20); Basophils % (Auto) 0 % (0.0-2.0); Eosinophils # (Auto) 0 K/mcL (0.00-0.70); Eosinophils % (Auto) 0 % (0.0-7.0); Hematocrit 26.3 % (41.0-55.0); Hemoglobin 8.7 g/dL (13.5-16.5); Lymphocytes # (Auto) 0.58 K/mcL (1.50-4.80); Lymphocytes % (Auto) 5.6 % (15.0-49.0); Mean Corpuscular HGB Conc 33.1 g/dL (31.0-36.0); Mean Platelet Volume 11.2 fL (7.4-10.4); Monocytes # (Auto) 0.61 K/mcL (0.10-0.90); Monocytes % (Auto) 5.9 % (1.0-12.0); Neutrophils % (Auto) 88.5 % (38.0-78.0); Platelet Count 109 K/mcL (140-440); RBC 2.86 M/mcL (4.50-5.90); Red Cell Distribution Width 13.6 % (11.5-14.5); WBC 10.3 K/mcL (4.5-11.0)
[2020-04-08 07:51] LABS: ALT/SGPT 16 U/L (<40); AST/SGOT 34 U/L (<40); Albumin 2.2 gm/dL (3.2-5.2); Alkaline Phosphatase 44 U/L (39-117); Bilirubin,Direct 0.2 mg/dL (<0.3); Bilirubin,Total 0.6 mg/dL (0.1-1.0); Blood Urea Nitrogen 23 mg/dL (8-23); Calcium 7.4 mg/dL (8.6-10.4); Carbon Dioxide 27 mmol/L (22-30); Chloride 110 mmol/L (96-108); Globulin 2.3 gm/dL (2.2-3.7); Glomerular Filtration Rate 59; Glucose 130 mg/dL (70-105); Lactate Dehydrogenase 229 U/L (135-225); Phosphorous 1.8 mg/dL (2.5-4.5); Triglycerides 63 mg/dL (<150); Uric Acid 5.3 mg/dL (2.5-8.0)
[2020-04-08] MEDS ORDERED: 0.9 % SODIUM CHLORIDE 250 ML IV SCH ×2 (09:15)
[2020-04-08] MEDS: LEVOFLOXACIN 750 MG/150 ML BAG IV SCH (09:26)
[2020-04-08] MEDS: PANTOPRAZOLE 40 MG VIAL IV SCH ×2 (11:41→18:03)
--- NOTE | 2020-04-08 12:37 | General Surgery Progress Note ---
SUBJECTIVE Subjective Patient information: Note initiated : 04/08/20 at 12:31 pm Service Date, if different from initiated Date: [] Patient: Felix Mancera 59 y/o M admitted on 04/05/20 for Colonoscopy. Chief Complaint: [] Principal diagnosis: cecal perforation;post operative hemorrhage Interval history: patient states that he feels much better. Vital signs have been stable. His pain is much improved. His hemoglobin has dropped to 8.7, but he only had 80 cc of serosanguineous output through his drains. He however has had some increased coffee-ground output through his nasogastric tube. This may account for his blood loss. Potassium 4.1, BUN 23, creatinine 1.3, white blood count 10.3, hemoglobin 8.7, hematocrit 26.9, platelets 109,000, phosphorus 1.8. Constitutional Vitals: Vital Signs Temp Pulse Resp BP Pulse Ox 99 F 119 H 20 149/82 92 04/08/20 12:00 04/08/20 03:50 04/08/20 12:00 04/08/20 12:00 04/08/20 12:00 Period Temp Pulse Resp BP Sys/Kimble Pulse Ox Last 24 Hr 98.5 F-101.3 F 98-120 12- 98-149/57-82 91-94 Intake and Output 04/07/20 04/08/20 04/08/20 21:59 05:59 13:59 Intake Total 2100 1150 0 Output Total 615 1455 800 Balance 1485 -305 -800 Weight 212 lb Intake & Output: Intake & Output 04/07/20 04/08/20 04/08/20 21:59 05:59 13:59 Intake Total 2100 1150 0 Output Total 615 1455 800 Balance 1485 -305 -800 Weight 212 lb Intake: IV 1300 1100 Sodium Chloride 0.9% 1,000 ml @ 1000 1000 150 mls/hr IV .Q6H40M [facility] Rx#: [id number] Oral 50 50 Tube Feeding 0 0 Blood Product 750 Output: Gastric Drainage 150 350 400 Right Nare 150 350 400 Drainage 105 Left HEATHER Drain 25 RLQ ABD 80 Drainage 65 Left HEATHER Drain 20 RLQ ABD 45 Urine Catheter Amount 400 1000 400 Other: Urine Appearance Clear Clear Clear Uretheral ([place]) Clear Urine Color Light Asuncion Dark Asuncion Straw Uretheral ([place]) Light Asuncion Urine Odor Strong Strong Head Head exam: Present atraumatic, normal inspection and normocephalic Eye Eye exam: Present EOMI Pupils: Present PERRL ENT ENT exam: Present mucous membranes moist, normal exam and normal oropharynx Neck Neck exam: Present full ROM and normal inspection Respiratory Respiratory exam: Present normal respiratory exam; Absent rales, rhonchi and wheezes Cardiovascular Cardiovascular exam: Present RRR and tachycardia (heart rate 120); Absent JVD GI/Abdominal GI/Abdominal exam: Present diminished bowel sounds Additional comments: mild oozing from incision, but otherwise unremarkable; few active bowel sounds Extremities Exam Extremities exam: Present full ROM, normal inspection and neurovascular intact; Absent pedal edema Back Exam Back exam: Present full ROM and normal inspection Neurological Exam Neurological exam: Present CN II-XII intact, normal gait, oriented X3 and reflexes normal Psychiatric Psychiatric exam: Present normal affect and normal mood Skin Skin exam: Present normal color A/P Assessment and plan (1) Postoperative hemorrhage: Status: Acute Qualifiers: Surgical complication system/body Area: digestive system Procedure type: digestive system Qualified Code(s): K91.840 - Postprocedural hemorrhage of a digestive system organ or structure following a digestive system procedure (2) Perforation of colon as colonoscopy complication: Status: Acute (3) MARVA (generalized anxiety disorder): Status: Chronic Narrative A/P Narrative: patient is clinically stable. However, I am still suspicious that he has some type of bleeding diathesis. He will receive 2 units of packed cells and 2 units of fresh plasma today. Though his platelets are at 109,000. If he has a platelet dysfunction. He may not be effective. I will monitor him to see if his hemoglobin drifts down more. If this happens. I will give him platelets since he has received at least 6 units of packed red cells. He is started on pantoprazole IV for possible GI bleeding. Time Spent With Patient Time: Total time spent is greater than 50% in coordination of care (as documented) at patient's floor/unit and/or counseling patient:
[2020-04-08] MEDS: ACETAMINOPHEN 1,000 MG/100 ML BOTTLE IV PRN ×2 (14:57→23:11)
[2020-04-09] MEDS: metroNIDAZOLE 500 MG/100 ML BAG IV SCH ×4 (02:16→21:25)
[2020-04-09] MEDS: HYDROmorphone 1 MG/ML SYRINGE IV PRN ×5 (02:17→21:32)
[2020-04-09] MEDS: 0.9 % SODIUM CHLORIDE 1,000 ML IV SCH ×4 (02:17→23:49)
[2020-04-09] MEDS: METOCLOPRAMIDE 10 MG/2 ML VIAL IV SCH ×4 (05:46→23:49)
[2020-04-09] MEDS: 0.9 % SODIUM CHLORIDE 10 ML SYRINGE IV SCH ×3 (05:47→20:19)
[2020-04-09] MEDS: ACETAMINOPHEN 1,000 MG/100 ML BOTTLE IV PRN ×3 (05:53→19:50)
[2020-04-09 06:40] LABS: Basophils # (Auto) 0.01 K/mcL (0.00-0.20); Basophils % (Auto) 0.1 % (0.0-2.0); Eosinophils # (Auto) 0.04 K/mcL (0.00-0.70); Eosinophils % (Auto) 0.4 % (0.0-7.0); Hematocrit 29.6 % (41.0-55.0); Hemoglobin 9.7 g/dL (13.5-16.5); Lymphocytes # (Auto) 0.63 K/mcL (1.50-4.80); Lymphocytes % (Auto) 6.7 % (15.0-49.0); Mean Cell Volume 91.4 fL (80.0-100.0); Mean Corpuscular HGB Conc 32.8 g/dL (31.0-36.0); Mean Platelet Volume 10.6 fL (7.4-10.4); Monocytes # (Auto) 0.55 K/mcL (0.10-0.90); Monocytes % (Auto) 5.8 % (1.0-12.0); Platelet Count 129 K/mcL (140-440); RBC 3.24 M/mcL (4.50-5.90); Red Cell Distribution Width 14.2 % (11.5-14.5); WBC 9.5 K/mcL (4.5-11.0)
[2020-04-09] MEDS: PANTOPRAZOLE 40 MG VIAL IV SCH ×2 (07:06→16:46)
[2020-04-09 07:21] LABS: ALT/SGPT 17 U/L (<40); AST/SGOT 27 U/L (<40); Albumin 2.5 gm/dL (3.2-5.2); Albumin/Globulin Ratio 0.9 (1.0-2.3); Alkaline Phosphatase 63 U/L (39-117); Bilirubin,Direct 0.2 mg/dL (<0.3); Bilirubin,Total 0.6 mg/dL (0.1-1.0); Blood Urea Nitrogen 22 mg/dL (8-23); Calcium 7.7 mg/dL (8.6-10.4); Carbon Dioxide 26 mmol/L (22-30); Chloride 111 mmol/L (96-108); Globulin 2.7 gm/dL (2.2-3.7); Glomerular Filtration Rate 81; Glucose 107 mg/dL (70-105); Lactate Dehydrogenase 204 U/L (135-225); Phosphorous 1.9 mg/dL (2.5-4.5); Triglycerides 86 mg/dL (<150); Uric Acid 5.2 mg/dL (2.5-8.0)
[2020-04-09 12:57] LABS: INR 1.2 (0.9-1.1); Prothrombin Time 15.7 sec (11.9-14.5)
--- NOTE | 2020-04-09 13:08 | Surgical Pathology Report ---
Histology Microscopic Diagnosis Specimen A- RIGHT COLON, TERMINAL ILEUM AND APPENDIX, SEGMENTAL RESECTION: -- RIGHT COLON: - PERFORATED COLON WITH TRANSMURAL ISCHEMIA AND ASSOCIATED SEROSITIS. - NO DYSPLASIA OR MALIGNANCY IDENTIFIED. - DISTAL MARGIN VIABLE -- TERMINAL ILEUM: - NO DIAGNOSTIC ALTERATIONS. - PROXIMAL MARGIN VIABLE. -- APPENDIX: - FIBROUS ABLATION OF APPENDICEAL TIP. -- LYMPH NODES, MESENTERIC: - FIVE LYMPH NODES WITH REACTIVE LYMPHOID HYPERPLASIA. (DMT:sln) Procedural Impression Cecal perforation. Gross Description Received in formalin designated as right cecal perforation, is a segment of cecum with attached terminal ileum and appendix. The cecal and terminal ileum margins are both stapled. The cecum measures 11 cm in length by up to 5 cm in diameter. The attached terminal ileum measures 2 cm in length by up to 2.2 cm in diameter. The serosa is mahmood-newell. Approximately 6 cm from the terminal ileum margin is a 2.2 cm area of possible perforation. This margin is inked black. The area of possible perforation is inked blue. The wall is up to 0.3 cm thick. The mucosa is newell and plicated. The area corresponding to the possible perforation is sunken with flattened folds. The appendix is mahmood-newell measuring 4.5 cm in length by up to 0.5 cm in diameter. There are six candidate lymph nodes identified measuring from 0.2 to 0.6 cm. Industrial Paramedic sections submitted in five cassettes: A1 - margins; A2 - retail account representative section of area of possible perforation; A3 - random sections; A4 - retail account representative section of appendix; A5 - retail account representative sections of candidate lymph nodes. (SCB:sln) Electronically Signed Allen Diggs MD, FCAP Electronically Signed 04/09/2020 1:07 PM
[2020-04-09] MEDS ORDERED: POTASSIUM PHOSPHATE 40 MEQ in DEXTROSE 5% IN WATER 500 ML IV ONE (14:17)
--- NOTE | 2020-04-09 14:17 | General Surgery Progress Note ---
SUBJECTIVE Subjective Patient information: Note initiated : 04/09/20 at 2:13 pm Service Date, if different from initiated Date: [] Patient: Felix Mancera 59 y/o M admitted on 04/05/20 for Colonoscopy. Chief Complaint: [] Principal diagnosis: cecal perforation;post operative hemorrhage Interval history: patient is stable. He has less pain. His output through his drains or more severe today than yesterday. He has good active bowel sounds has not had flatus. PT 15.7, INR 1.2 BUN 22, creatinine 1, phosphorus 1.9. White blood count 9.5, hemoglobin 9.7 platelets 129,000. Oxygen saturation 95%. HEATHER output for the past 12 hours with 100 cc of serous fluid without any major blood. Constitutional Vitals: Vital Signs Temp Pulse Resp BP Pulse Ox 98.0 F 96 H 18 135/79 96 04/09/20 08:00 04/09/20 08:00 04/09/20 08:00 04/09/20 08:00 04/09/20 08:00 Period Temp Pulse Resp BP Sys/Kimble Pulse Ox Last 24 Hr 98.0 F-99.4 F 96-113 14-20 126-139/74-87 90-96 Intake and Output 04/09/20 04/09/20 04/09/20 05:59 13:59 21:59 Intake Total 400 300 Output Total 1525 Balance -1125 300 Intake & Output: Intake & Output 04/09/20 04/09/20 04/09/20 05:59 13:59 21:59 Intake Total 400 300 Output Total 1525 Balance -1125 300 Intake: IV 100 300 Oral 300 Tube Feeding 0 Output: Gastric Drainage 350 Right Nare 350 Drainage 100 Left HEATHER Drain 40 RLQ ABD 60 Urine Catheter Amount 1075 Other: Urine Appearance Clear Urine Color Dark Yellow Head Head exam: Present atraumatic, normal inspection and normocephalic Eye Eye exam: Present EOMI Pupils: Present PERRL ENT ENT exam: Present mucous membranes moist, normal exam and normal oropharynx Respiratory Respiratory exam: Present normal respiratory exam; Absent rales, rhonchi and wheezes Cardiovascular Cardiovascular exam: Present RRR and tachycardia (heart rate 120); Absent JVD GI/Abdominal GI/Abdominal exam: Present diminished bowel sounds Additional comments: mild oozing from incision, but otherwise unremarkable; few active bowel sounds Extremities Exam Extremities exam: Present full ROM, normal inspection and neurovascular intact; Absent pedal edema Back Exam Back exam: Present full ROM and normal inspection Neurological Exam Neurological exam: Present CN II-XII intact, normal gait, oriented X3 and reflexes normal Skin Skin exam: Present normal color A/P Assessment and plan (1) Postoperative hemorrhage: Status: Acute Qualifiers: Surgical complication system/body Area: digestive system Procedure type: digestive system Qualified Code(s): K91.840 - Postprocedural hemorrhage of a digestive system organ or structure following a digestive system procedure (2) Perforation of colon as colonoscopy complication: Status: Acute Narrative A/P Narrative: discontinue [place] catheter. Clamp nasogastric tube. Potassium phosphate. 1 Time Spent With Patient Time: Total time spent is greater than 50% in coordination of care (as documented) at patient's floor/unit and/or counseling patient:
[2020-04-10] MEDS: HYDROmorphone 1 MG/ML SYRINGE IV PRN ×7 (01:06→21:54)
[2020-04-10] MEDS: metroNIDAZOLE 500 MG/100 ML BAG IV SCH ×4 (02:29→20:25)
[2020-04-10] MEDS: ACETAMINOPHEN 1,000 MG/100 ML BOTTLE IV PRN ×3 (03:30→19:08)
[2020-04-10] MEDS: 0.9 % SODIUM CHLORIDE 1,000 ML IV SCH ×3 (04:32→14:22)
[2020-04-10] MEDS: METOCLOPRAMIDE 10 MG/2 ML VIAL IV SCH ×3 (05:39→17:32)
[2020-04-10] MEDS: 0.9 % SODIUM CHLORIDE 10 ML SYRINGE IV SCH ×3 (05:47→21:54)
[2020-04-10] MEDS: PANTOPRAZOLE 40 MG VIAL IV SCH ×2 (07:06→17:32)
[2020-04-10 08:08] LABS: Basophils # (Auto) 0.02 K/mcL (0.00-0.20); Basophils % (Auto) 0.2 % (0.0-2.0); Eosinophils # (Auto) 0.11 K/mcL (0.00-0.70); Hematocrit 30.7 % (41.0-55.0); Hemoglobin 9.9 g/dL (13.5-16.5); Lymphocytes # (Auto) 0.54 K/mcL (1.50-4.80); Lymphocytes % (Auto) 4.8 % (15.0-49.0); Mean Cell Volume 91.9 fL (80.0-100.0); Mean Corpuscular HGB Conc 32.2 g/dL (31.0-36.0); Mean Platelet Volume 10.4 fL (7.4-10.4); Monocytes # (Auto) 0.56 K/mcL (0.10-0.90); Platelet Count 148 K/mcL (140-440); RBC 3.34 M/mcL (4.50-5.90); Red Cell Distribution Width 13.8 % (11.5-14.5); WBC 11.2 K/mcL (4.5-11.0)
[2020-04-10 08:41] LABS: ALT/SGPT 17 U/L (<40); AST/SGOT 20 U/L (<40); Albumin 2.7 gm/dL (3.2-5.2); Albumin/Globulin Ratio 1.1 (1.0-2.3); Alkaline Phosphatase 47 U/L (39-117); Bilirubin,Direct < 0.2 mg/dL (<0.3); Bilirubin,Total 0.5 mg/dL (0.1-1.0); Blood Urea Nitrogen 18 mg/dL (8-23); Calcium 7.8 mg/dL (8.6-10.4); Carbon Dioxide 25 mmol/L (22-30); Chloride 111 mmol/L (96-108); Globulin 2.5 gm/dL (2.2-3.7); Glomerular Filtration Rate 72; Glucose 115 mg/dL (70-105); Lactate Dehydrogenase 246 U/L (135-225); Phosphorous 2.1 mg/dL (2.5-4.5); Triglycerides 84 mg/dL (<150); Uric Acid 4.9 mg/dL (2.5-8.0)
[2020-04-10] MEDS: LEVOFLOXACIN 750 MG/150 ML BAG IV SCH (09:55)
--- NOTE | 2020-04-10 16:44 | General Surgery Progress Note ---
SUBJECTIVE Subjective Patient information: Note initiated : 04/10/20 at 4:42 pm Service Date, if different from initiated Date: [] Patient: Felix Mancera 59 y/o M admitted on 04/05/20 for Colonoscopy. Chief Complaint: [] Principal diagnosis: cecal perforation;post operative hemorrhage Interval history: patient feels much better. He has had flatus and does not complain of nausea. His incision shows some early drainage but he is afebrile.white blood count is 11.9 and hemoglobin 9.9 Constitutional Vitals: Vital Signs Temp Pulse Resp BP Pulse Ox 98.8 F 86 20 149/86 96 04/10/20 12:00 04/10/20 12:00 04/10/20 12:00 04/10/20 12:00 04/10/20 12:00 Period Temp Pulse Resp BP Sys/Kimble Pulse Ox Last 24 Hr 97.9 F-98.8 F 81-104 18-24 128-150/81-86 91-96 Intake and Output 04/10/20 04/10/20 04/10/20 05:59 13:59 21:59 Intake Total 450 1200 Output Total 965 100 405 Balance -515 1100 -405 Intake & Output: Intake & Output 04/10/20 04/10/20 04/10/20 05:59 13:59 21:59 Intake Total 450 1200 Output Total 965 100 405 Balance -515 1100 -405 Intake: IV 200 1200 Sodium Chloride 0.9% 1,000 ml @ 1000 150 mls/hr IV .Q6H40M [facility] Rx#: [id number] Oral 250 Tube Feeding 0 Output: Gastric Drainage 0 0 Right Nare 0 0 Drainage 65 105 Left HEATHER Drain 15 25 RLQ ABD 50 80 Urine Catheter Amount 100 Void Amount 900 300 Other: Urine Appearance Clear Clear Urine Color Tea Colored Urine Odor Normal Head Head exam: Present atraumatic, normal inspection and normocephalic Eye Eye exam: Present EOMI Pupils: Present PERRL ENT ENT exam: Present mucous membranes moist, normal exam and normal oropharynx Neck Neck exam: Present full ROM and normal inspection Respiratory Respiratory exam: Present normal respiratory exam; Absent rales, rhonchi and wheezes Cardiovascular Cardiovascular exam: Present RRR and tachycardia (heart rate 96); Absent JVD GI/Abdominal GI/Abdominal exam: Present normal bowel sounds, soft and diminished bowel sounds; Absent distended Additional comments: no oozing from incision, but otherwise unremarkable; few active bowel sounds; Extremities Exam Extremities exam: Present full ROM, normal inspection and neurovascular intact; Absent pedal edema Back Exam Back exam: Present full ROM and normal inspection Neurological Exam Neurological exam: Present CN II-XII intact, normal gait, oriented X3 and reflexes normal Psychiatric Psychiatric exam: Present normal affect and normal mood A/P Assessment and plan (1) Postoperative hemorrhage: Status: Acute Qualifiers: Surgical complication system/body Area: digestive system Procedure type: digestive system Qualified Code(s): K91.840 - Postprocedural hemorrhage of a digestive system organ or structure following a digestive system procedure (2) Perforation of colon as colonoscopy complication: Status: Acute Narrative A/P Narrative: d/c nasogastric tube clear liquids full liquids tomorrow 2view abdominal xrays in am Time Spent With Patient Time: Total time spent is greater than 50% in coordination of care (as documented) at patient's floor/unit and/or counseling patient:
[2020-04-11] MEDS: 0.9 % SODIUM CHLORIDE 1,000 ML IV SCH ×4 (00:11→22:45)
[2020-04-11] MEDS: METOCLOPRAMIDE 10 MG/2 ML VIAL IV SCH ×4 (00:12→18:04)
[2020-04-11] MEDS: HYDROmorphone 1 MG/ML SYRINGE IV PRN ×7 (00:13→20:37)
[2020-04-11] MEDS: ACETAMINOPHEN 1,000 MG/100 ML BOTTLE IV PRN ×3 (01:09→18:40)
[2020-04-11] MEDS: metroNIDAZOLE 500 MG/100 ML BAG IV SCH ×4 (01:45→20:30)
[2020-04-11] MEDS: 0.9 % SODIUM CHLORIDE 10 ML SYRINGE IV SCH ×3 (05:35→21:33)
[2020-04-11 06:37] LABS: Basophils # (Auto) 0.03 K/mcL (0.00-0.20); Basophils % (Auto) 0.2 % (0.0-2.0); Eosinophils # (Auto) 0.14 K/mcL (0.00-0.70); Eosinophils % (Auto) 0.9 % (0.0-7.0); Lymphocytes # (Auto) 0.59 K/mcL (1.50-4.80); Mean Cell Volume 91.7 fL (80.0-100.0); Mean Corpuscular HGB Conc 32.3 g/dL (31.0-36.0); Mean Platelet Volume 10.2 fL (7.4-10.4); Monocytes # (Auto) 0.79 K/mcL (0.10-0.90); Monocytes % (Auto) 5.3 % (1.0-12.0); Neutrophils % (Auto) 89.6 % (38.0-78.0); Platelet Count 171 K/mcL (140-440); RBC 3.38 M/mcL (4.50-5.90); Red Cell Distribution Width 13.8 % (11.5-14.5); WBC 14.8 K/mcL (4.5-11.0)
--- NOTE | 2020-04-11 07:44 | XRay Report ---
CLINICAL INFORMATION: FOR F/U OF ILEUS COMPARISON: Abdomen and pelvic CT 04/05/2020 FINDINGS: NG tube the gastric fundus. Stomach, small and large bowel are normal caliber. There are few air-fluid levels within the right colon however. No free air. Surgical drain seen in the right and left abdomen. IMPRESSION: Negative Interpreted and Authenticated by: Virgilio Calero 04/11/20
[2020-04-11] MEDS: PANTOPRAZOLE 40 MG VIAL IV SCH ×2 (07:46→18:04)
--- NOTE | 2020-04-11 10:24 | Surgical Pathology Report ---
Histology Microscopic Diagnosis Specimen A- COLON, ASCENDING POLYP, POLYPECTOMY: -- MULTIPLE PORTIONS OF TUBULOVILLOUS ADENOMA. (ACP:adj) Clinical History Screening. Procedural Impression Recurrent large villous adenoma. Gross Description The specimen is received in three containers all labeled ascending colon polyp, are multiple fragments of newell tissue ranging in size from 0.2 to 1.7 cm. The possible margins of the larger fragments are inked black and they are sectioned. Totally submitted in seven cassettes. (KGW:sln) Electronically Signed Raymundo Rg MD, FCAP Electronically Signed 04/11/2020 10:23 AM
[2020-04-11] MEDS ORDERED: VANCOMYCIN 1,000 MG in 0.9 % SODIUM CHLORIDE 250 ML IV SCH (15:30)
[2020-04-11] MEDS ORDERED: MEROPENEM 1 GM in 0.9 % SODIUM CHLORIDE 50 ML IV SCH (15:30)
[2020-04-11] MEDS ORDERED: VANCOMYCIN PER PHARMACY IV SCH (15:45)
[2020-04-11] MEDS: VANCOMYCIN 1,500 MG in 0.9 % SODIUM CHLORIDE 500 ML IV SCH (15:59)
--- NOTE | 2020-04-11 16:15 | General Surgery Progress Note ---
SUBJECTIVE Subjective Patient information: Note initiated : 04/11/20 at 4:12 pm Service Date, if different from initiated Date: [] Patient: Felix Mancera 59 y/o M admitted on 04/05/20 for Colonoscopy. Chief Complaint: [] Principal diagnosis: cecal perforation;post operative hemorrhage Interval history: patient has developed low-grade fever. He's also had some drainage from his incision. Drainage from his intraperitoneal drains in the right lobe quadrant and left upper quadrant or serosanguineous without evidence of purulence. White blood count 14.8, hemoglobin 10, hematocrit 31 Constitutional Vitals: Vital Signs Temp Pulse Resp BP Pulse Ox 98.6 F 91 H 20 138/83 93 04/11/20 12:00 04/11/20 12:00 04/11/20 12:00 04/11/20 12:00 04/11/20 12:00 Period Temp Pulse Resp BP Sys/Kimble Pulse Ox Last 24 Hr 97.9 F-100.7 F 65-106 18-20 126-160/77-90 91-93 Intake and Output 04/11/20 04/11/20 04/11/20 05:59 13:59 21:59 Intake Total 600 1680 200 Output Total 535 445 375 Balance 65 1235 -175 Weight 213 lb 1.6 oz Patient Weight 04/12/20 05:59 Weight 213 lb 1.6 oz Intake & Output: Intake & Output 04/11/20 04/11/20 04/11/20 05:59 13:59 21:59 Intake Total 600 1680 200 Output Total 535 445 375 Balance 65 1235 -175 Weight 213 lb 1.6 oz Intake: IV 200 1200 Sodium Chloride 0.9% 1,000 ml @ 1000 150 mls/hr IV .Q6H40M [facility] Rx#: [id number] Oral 400 480 200 Output: Drainage 60 45 Left HEATHER Drain 15 15 RLQ ABD 45 30 Void Amount 475 400 Stool 375 Other: Meal Jello Breakfast Lunch Percent of Meal Consumed 100% 100% 75% Feeding Ability Independent Independent Independent Urine Appearance Clear Urine Color Tea Colored Tea Colored Urine Odor Normal Stool Consistency Liquid # Bowel Movements 1 Head Head exam: Present atraumatic, normal inspection and normocephalic Eye Eye exam: Present EOMI Pupils: Present PERRL ENT ENT exam: Present mucous membranes moist, normal exam and normal oropharynx Neck Neck exam: Present full ROM and normal inspection Respiratory Respiratory exam: Present normal respiratory exam; Absent rales, rhonchi and wheezes Cardiovascular Cardiovascular exam: Present RRR and tachycardia (heart rate 120); Absent JVD GI/Abdominal GI/Abdominal exam: Present diminished bowel sounds Additional comments: mild oozing from incision, but otherwise unremarkable; few active bowel sounds Extremities Exam Extremities exam: Present full ROM, normal inspection and neurovascular intact; Absent pedal edema Neurological Exam Neurological exam: Present CN II-XII intact, normal gait, oriented X3 and reflexes normal Psychiatric Psychiatric exam: Present normal affect and normal mood Skin Skin exam: Present normal color A/P Assessment and plan (1) Postoperative hemorrhage: Status: Acute Qualifiers: Surgical complication system/body Area: digestive system Procedure type: digestive system Qualified Code(s): K91.840 - Postprocedural hemorrhage of a digestive system organ or structure following a digestive system procedure (2) Perforation of colon as colonoscopy complication: Status: Acute Narrative A/P Narrative: discontinue Levaquin. Meropenem 1 g IV every 8 hours. Vancomycin per pharmacy. Check labs in the morning Time Spent With Patient Time: Total time spent is greater than 50% in coordination of care (as documented) at patient's floor/unit and/or counseling patient:
[2020-04-11] MEDS: MEROPENEM 1 GM in 0.9 % SODIUM CHLORIDE 100 ML IV SCH (17:55)
[2020-04-12] MEDS: METOCLOPRAMIDE 10 MG/2 ML VIAL IV SCH ×5 (00:30→23:40)
[2020-04-12] MEDS: 0.9 % SODIUM CHLORIDE 1,000 ML IV SCH ×4 (00:33→20:15)
[2020-04-12] MEDS: VANCOMYCIN 1,500 MG in 0.9 % SODIUM CHLORIDE 500 ML IV SCH ×3 (00:54→21:17)
[2020-04-12] MEDS: MEROPENEM 1 GM in 0.9 % SODIUM CHLORIDE 100 ML IV SCH ×4 (02:30→21:24)
[2020-04-12] MEDS: metroNIDAZOLE 500 MG/100 ML BAG IV SCH ×4 (03:30→20:05)
[2020-04-12] MEDS: 0.9 % SODIUM CHLORIDE 10 ML SYRINGE IV SCH ×3 (05:35→21:34)
[2020-04-12 06:48] LABS: Basophils # (Auto) 0.03 K/mcL (0.00-0.20); Basophils % (Auto) 0.2 % (0.0-2.0); Eosinophils # (Auto) 0.15 K/mcL (0.00-0.70); Eosinophils % (Auto) 1.1 % (0.0-7.0); Hematocrit 31.1 % (41.0-55.0); Hemoglobin 10.3 g/dL (13.5-16.5); Lymphocytes # (Auto) 0.61 K/mcL (1.50-4.80); Lymphocytes % (Auto) 4.6 % (15.0-49.0); Mean Cell Volume 91.5 fL (80.0-100.0); Mean Corpuscular HGB Conc 33.1 g/dL (31.0-36.0); Mean Platelet Volume 10.3 fL (7.4-10.4); Monocytes % (Auto) 5.3 % (1.0-12.0); Neutrophils % (Auto) 88.8 % (38.0-78.0); Platelet Count 198 K/mcL (140-440); Red Cell Distribution Width 13.7 % (11.5-14.5); WBC 13.2 K/mcL (4.5-11.0)
[2020-04-12] MEDS: PANTOPRAZOLE 40 MG VIAL IV SCH ×2 (08:17→17:41)
[2020-04-12] MEDS: HYDROmorphone 1 MG/ML SYRINGE IV PRN ×3 (13:47→22:47)
--- NOTE | 2020-04-12 14:19 | General Surgery Progress Note ---
SUBJECTIVE Subjective Patient information: Note initiated : 04/12/20 at 2:15 pm Service Date, if different from initiated Date: [] Patient: Felix Mancera 59 y/o M admitted on 04/05/20 for Colonoscopy. Chief Complaint: [] Principal diagnosis: cecal perforation;post operative hemorrhage Interval history: patient states that he feels much better. He is tolerating full liquids and is having multiple bowel movements. He denies nausea or vomiting. He is afebrile. White blood count 13.2, hemoglobin 10.3, hematocrit 31.1. Constitutional Vitals: Vital Signs Temp Pulse Resp BP Pulse Ox 98.7 F 100 H 16 138/81 93 04/12/20 12:00 04/12/20 12:00 04/12/20 12:00 04/12/20 12:00 04/12/20 12:00 Period Temp Pulse Resp BP Sys/Kimble Pulse Ox Last 24 Hr 98 F-101.7 F 92-110 16-20 138-147/80-84 93-100 Intake and Output 04/12/20 04/12/20 04/12/20 05:59 13:59 21:59 Intake Total 2420 540 Output Total 895 201 Balance 1525 339 Intake & Output: Intake & Output 04/12/20 04/12/20 04/12/20 05:59 13:59 21:59 Intake Total 2420 540 Output Total 895 201 Balance 1525 339 Intake: IV 1700 200 Sodium Chloride 0.9% 1,000 ml @ 1000 150 mls/hr IV .Q6H40M [facility] Rx#: [id number] Merrem 1 gm In Sodium Chloride 100 100 0.9% 100 ml @ 100 mls/hr IV Q8H [facility] Rx#:[id number] Vancomycin 1,500 mg In Sodium 500 Chloride 0.9% 500 ml @ 333.3 mls/hr IV Q12H [facility] Rx#: [id number] Oral 720 340 Output: Drainage 45 Left HEATHER Drain 15 Right HEATHER Drain 30 Void Amount 600 201 Urine/Stool Mix 250 Other: Meal Lunch Percent of Meal Consumed 75% Feeding Ability Independent Urine Appearance Clear Clear Urine Color Light Asuncion Light Asuncion Urine Odor Normal Normal Stool Size Small Moderate Stool Color Brown Black Stool Consistency Soft Liquid # Voids 1 # Bowel Movements 1 1 Head Head exam: Present atraumatic, normal inspection and normocephalic Eye Eye exam: Present EOMI Pupils: Present PERRL ENT ENT exam: Present mucous membranes moist, normal exam and normal oropharynx Neck Neck exam: Present full ROM and normal inspection Respiratory Respiratory exam: Present normal respiratory exam; Absent rales, rhonchi and wheezes Cardiovascular Cardiovascular exam: Present RRR and tachycardia (heart rate 120); Absent JVD GI/Abdominal GI/Abdominal exam: Present diminished bowel sounds Additional comments: no oozing from incision, but otherwise unremarkable; few active bowel sounds Extremities Exam Extremities exam: Present full ROM, normal inspection and neurovascular intact; Absent pedal edema Back Exam Back exam: Present full ROM and normal inspection Neurological Exam Neurological exam: Present CN II-XII intact, normal gait, oriented X3 and reflexes normal Psychiatric Psychiatric exam: Present normal affect and normal mood Skin Skin exam: Present normal color A/P Assessment and plan (1) Postoperative hemorrhage: Status: Acute Qualifiers: Surgical complication system/body Area: digestive system Procedure type: digestive system Qualified Code(s): K91.840 - Postprocedural hemorrhage of a digestive system organ or structure following a digestive system procedure (2) Perforation of colon as colonoscopy complication: Status: Acute Narrative A/P Narrative: continue antibiotics. Advanced to regular diet. Check morning labs Time Spent With Patient Time: Total time spent is greater than 50% in coordination of care (as doc umented) at patient's floor/unit and/or counseling patient:
[2020-04-13] MEDS: metroNIDAZOLE 500 MG/100 ML BAG IV SCH ×4 (01:45→19:47)
[2020-04-13] MEDS: HYDROmorphone 1 MG/ML SYRINGE IV PRN ×3 (03:28→18:08)
[2020-04-13] MEDS: 0.9 % SODIUM CHLORIDE 1,000 ML IV SCH ×4 (04:51→17:40)
[2020-04-13] MEDS: 0.9 % SODIUM CHLORIDE 10 ML SYRINGE IV SCH ×3 (05:06→21:51)
[2020-04-13] MEDS: MEROPENEM 1 GM in 0.9 % SODIUM CHLORIDE 100 ML IV SCH ×3 (05:19→21:55)
[2020-04-13] MEDS: METOCLOPRAMIDE 10 MG/2 ML VIAL IV SCH ×4 (05:20→23:52)
[2020-04-13 06:46] LABS: Basophils # (Auto) 0.04 K/mcL (0.00-0.20); Basophils % (Auto) 0.4 % (0.0-2.0); Eosinophils # (Auto) 0.19 K/mcL (0.00-0.70); Eosinophils % (Auto) 1.8 % (0.0-7.0); Hematocrit 32.8 % (41.0-55.0); Hemoglobin 10.5 g/dL (13.5-16.5); Lymphocytes # (Auto) 0.75 K/mcL (1.50-4.80); Lymphocytes % (Auto) 7.2 % (15.0-49.0); Mean Cell Volume 92.1 fL (80.0-100.0); Mean Platelet Volume 10.3 fL (7.4-10.4); Monocytes # (Auto) 0.61 K/mcL (0.10-0.90); Monocytes % (Auto) 5.9 % (1.0-12.0); Neutrophils % (Auto) 84.7 % (38.0-78.0); Platelet Count 225 K/mcL (140-440); RBC 3.56 M/mcL (4.50-5.90); Red Cell Distribution Width 13.7 % (11.5-14.5); WBC 10.4 K/mcL (4.5-11.0)
[2020-04-13 07:09] LABS: ALT/SGPT 12 U/L (<40); AST/SGOT 15 U/L (<40); Albumin 2.2 gm/dL (3.2-5.2); Albumin/Globulin Ratio 0.9 (1.0-2.3); Alkaline Phosphatase 62 U/L (39-117); Bilirubin,Direct < 0.2 mg/dL (<0.3); Bilirubin,Total 0.3 mg/dL (0.1-1.0); Blood Urea Nitrogen 12 mg/dL (8-23); Calcium 7.4 mg/dL (8.6-10.4); Carbon Dioxide 21 mmol/L (22-30); Chloride 111 mmol/L (96-108); Globulin 2.4 gm/dL (2.2-3.7); Glomerular Filtration Rate 92; Glucose 117 mg/dL (70-105); Lactate Dehydrogenase 252 U/L (135-225); Phosphorous 2.3 mg/dL (2.5-4.5); Triglycerides 80 mg/dL (<150); Uric Acid 3.4 mg/dL (2.5-8.0)
[2020-04-13] MEDS: PANTOPRAZOLE 40 MG VIAL IV SCH ×2 (07:41→17:40)
[2020-04-13 08:52] LABS: Basophils # (Auto) 0.05 K/mcL (0.00-0.20); Basophils % (Auto) 0.5 % (0.0-2.0); Eosinophils # (Auto) 0.22 K/mcL (0.00-0.70); Eosinophils % (Auto) 2.3 % (0.0-7.0); Hematocrit 31.8 % (41.0-55.0); Hemoglobin 10.7 g/dL (13.5-16.5); Lymphocytes # (Auto) 0.79 K/mcL (1.50-4.80); Lymphocytes % (Auto) 8.4 % (15.0-49.0); Mean Cell Volume 89.8 fL (80.0-100.0); Mean Corpuscular HGB Conc 33.6 g/dL (31.0-36.0); Mean Platelet Volume 10.2 fL (7.4-10.4); Monocytes # (Auto) 0.53 K/mcL (0.10-0.90); Monocytes % (Auto) 5.6 % (1.0-12.0); Neutrophils % (Auto) 83.2 % (38.0-78.0); Platelet Count 233 K/mcL (140-440); RBC 3.54 M/mcL (4.50-5.90); Red Cell Distribution Width 13.7 % (11.5-14.5); WBC 9.5 K/mcL (4.5-11.0)
[2020-04-13] MEDS: VANCOMYCIN 1,500 MG in 0.9 % SODIUM CHLORIDE 500 ML IV SCH ×2 (10:50→20:54)
--- NOTE | 2020-04-13 13:27 | General Surgery Progress Note ---
SUBJECTIVE Subjective Patient information: Note initiated : 04/13/20 at 1:24 pm Service Date, if different from initiated Date: [] Patient: Felix Mancera 59 y/o M admitted on 04/05/20 for Colonoscopy. Chief Complaint: [] Principal diagnosis: cecal perforation;post operative hemorrhage Interval history: patient feels better. He still has erythema of his incision but there is minimal drainage. He had temperature to 100 last evening, but is afebrile at this time. White blood count is 9.5. Hemoglobin is changed. Constitutional Vitals: Vital Signs Temp Pulse Resp BP Pulse Ox 98.7 F 91 H 18 138/83 98 04/13/20 12:00 04/13/20 12:00 04/13/20 12:00 04/13/20 12:00 04/13/20 12:00 Period Temp Pulse Resp BP Sys/Kimble Pulse Ox Last 24 Hr 98.4 F-100.0 F 84-105 16-18 126-158/78-85 93-98 Intake and Output 04/12/20 04/13/20 04/13/20 21:59 05:59 13:59 Intake Total 1300 1700 840 Output Total 445 920 381 Balance 855 780 459 Weight 220 lb 3.2 oz 220 lb 3.2 oz Patient Weight 04/14/20 05:59 Weight 220 lb 3.2 oz Intake & Output: Intake & Output 04/12/20 04/13/20 04/13/20 21:59 05:59 13:59 Intake Total 1300 1700 840 Output Total 445 920 381 Balance 855 780 459 Weight 220 lb 3.2 oz 220 lb 3.2 oz Intake: IV 1300 1700 200 Sodium Chloride 0.9% 1,000 ml @ 1000 1000 150 mls/hr IV .Q6H40M [facility] Rx#: [id number] Merrem 1 gm In Sodium Chloride 100 100 100 0.9% 100 ml @ 100 mls/hr IV Q8H [facility] Rx#:[id number] Vancomycin 1,500 mg In Sodium 500 Chloride 0.9% 500 ml @ 333.3 mls/hr IV Q12H [facility] Rx#: [id number] Oral 640 Output: Drainage 120 28 Left HEATHER Drain 40 12 Right HEATHER Drain 80 16 Drainage 45 28 Left HEATHER Drain 15 Right HEATHER Drain 30 28 Void Amount 325 875 325 Other: Meal Dinner Lunch Percent of Meal Consumed 50% 50% Feeding Ability Independent Urine Appearance Clear Clear Urine Color Dark Yellow Dark Yellow Straw Urine Odor Strong Normal Normal Stool Size Small Stool Consistency Formed Loose # Voids 1 1 # Bowel Movements 1 Eye Eye exam: Present EOMI Pupils: Present PERRL ENT ENT exam: Present mucous membranes moist, normal exam and normal oropharynx Neck Neck exam: Present full ROM and normal inspection Respiratory Respiratory exam: Present normal respiratory exam; Absent rales, rhonchi and wheezes Cardiovascular Cardiovascular exam: Present RRR and tachycardia (heart rate 120); Absent JVD GI/Abdominal GI/Abdominal exam: Present diminished bowel sounds Additional comments: no oozing from incision, but otherwise unremarkable; few active bowel sounds Extremities Exam Extremities exam: Present full ROM, normal inspection and neurovascular intact; Absent pedal edema Neurological Exam Neurological exam: Present CN II-XII intact, normal gait, oriented X3 and reflexes normal Psychiatric Psychiatric exam: Present normal affect and normal mood A/P Assessment and plan (1) Postoperative hemorrhage: Status: Acute Qualifiers: Surgical complication system/body Area: digestive system Procedure type: digestive system Qualified Code(s): K91.840 - Postprocedural hemorrhage of a digestive system organ or structure following a digestive system procedure (2) Perforation of colon as colonoscopy complication: Status: Acute (3) Cellulitis, abdominal wall: Status: Acute Narrative A/P Narrative: continue present medications Time Spent With Patient Time: Total time spent is greater than 50% in coordination of care (as documented) at patient's floor/unit and/or counseling patient:
[2020-04-13] MEDS: oxyCODONE HCL 5 MG TABLET PO PRN ×2 (13:53→22:53)
[2020-04-13 18:27] LABS: Vitamin K-SO 56 pg/mL (130-1500)
[2020-04-14] MEDS: metroNIDAZOLE 500 MG/100 ML BAG IV SCH ×4 (01:58→20:10)
[2020-04-14] MEDS: 0.9 % SODIUM CHLORIDE 1,000 ML IV SCH ×3 (02:30→13:53)
[2020-04-14] MEDS: oxyCODONE HCL 5 MG TABLET PO PRN ×5 (03:34→22:44)
[2020-04-14] MEDS: 0.9 % SODIUM CHLORIDE 10 ML SYRINGE IV SCH ×4 (05:18→23:48)
[2020-04-14] MEDS: MEROPENEM 1 GM in 0.9 % SODIUM CHLORIDE 100 ML IV SCH ×3 (05:35→22:34)
[2020-04-14] MEDS: METOCLOPRAMIDE 10 MG/2 ML VIAL IV SCH ×4 (05:36→23:47)
[2020-04-14 07:22] LABS: ALT/SGPT 13 U/L (<40); AST/SGOT 19 U/L (<40); Albumin 2.3 gm/dL (3.2-5.2); Albumin/Globulin Ratio 0.9 (1.0-2.3); Alkaline Phosphatase 60 U/L (39-117); Bilirubin,Direct < 0.2 mg/dL (<0.3); Bilirubin,Total 0.3 mg/dL (0.1-1.0); Blood Urea Nitrogen 12 mg/dL (8-23); Calcium 7.5 mg/dL (8.6-10.4); Carbon Dioxide 22 mmol/L (22-30); Chloride 109 mmol/L (96-108); Globulin 2.6 gm/dL (2.2-3.7); Glomerular Filtration Rate 92; Glucose 109 mg/dL (70-105); Lactate Dehydrogenase 252 U/L (135-225); Phosphorous 2.2 mg/dL (2.5-4.5); Triglycerides 92 mg/dL (<150); Uric Acid 3.3 mg/dL (2.5-8.0)
[2020-04-14] MEDS: PANTOPRAZOLE 40 MG VIAL IV SCH ×2 (07:43→17:35)
[2020-04-14] MEDS: VANCOMYCIN 1,500 MG in 0.9 % SODIUM CHLORIDE 500 ML IV SCH ×2 (10:32→21:19)
--- NOTE | 2020-04-14 13:26 | General Surgery Progress Note ---
SUBJECTIVE Subjective Patient information: Note initiated : 04/14/20 at 1:21 pm Service Date, if different from initiated Date: [] Patient: Felix Mancera 59 y/o M admitted on 04/05/20 for Colonoscopy. Chief Complaint: [] Principal diagnosis: cecal perforation;post operative hemorrhage Interval history: patient states that he feels much better. He has been afebrile. The cellulitis. The patient's incision is improved. Discussed with patient the need to have PICC line placed for outpatient antibiotics. His vitamin K level is 56 which is low. Constitutional Vitals: Vital Signs Temp Pulse Resp BP Pulse Ox 98.3 F 95 H 18 137/81 94 04/14/20 11:27 04/14/20 11:27 04/14/20 11:27 04/14/20 11:27 04/14/20 11:27 Period Temp Pulse Resp BP Sys/Kimble Pulse Ox Last 24 Hr 97.7 F-99.6 F 82-95 18-18 126-137/76-86 93-94 Intake and Output 04/13/20 04/14/20 04/14/20 21:59 05:59 13:59 Intake Total 820 1940 1260 Output Total 473 578 7582 Balance -85 1090 -65 Weight 219 lb 4.8 oz Intake & Output: Intake & Output 04/13/20 04/14/20 04/14/20 21:59 05:59 13:59 Intake Total 820 1940 1260 Output Total 780 096 0205 Balance -85 1090 -65 Weight 219 lb 4.8 oz Intake: IV 300 1700 700 Sodium Chloride 0.9% 1,000 ml @ 1000 150 mls/hr IV .Q6H40M [facility] Rx#: [id number] Merrem 1 gm In Sodium Chloride 100 100 100 0.9% 100 ml @ 100 mls/hr IV Q8H [facility] Rx#:[id number] Vancomycin 1,500 mg In Sodium 500 500 Chloride 0.9% 500 ml @ 333.3 mls/hr IV Q12H NACHO Rx#: [id number] Oral 520 240 560 Output: Drainage 55 50 Left HEATHER Drain 20 15 Right HEATHER Drain 35 35 Void Amount [id number] Other: Meal Dinner Breakfast Percent of Meal Consumed 100% 75% Feeding Ability Independent Independent Urine Appearance Clear Clear Clear Urine Color Bright Yellow Straw Bright Yellow Urine Odor Normal Normal Head Head exam: Present atraumatic, normal inspection and normocephalic Eye Eye exam: Present EOMI Pupils: Present PERRL ENT ENT exam: Present mucous membranes moist, normal exam and normal oropharynx Neck Neck exam: Present full ROM and normal inspection Respiratory Respiratory exam: Present normal respiratory exam; Absent rales, rhonchi and wheezes Cardiovascular Cardiovascular exam: Present RRR and tachycardia (heart rate 120); Absent JVD GI/Abdominal GI/Abdominal exam: Present normal bowel sounds, soft and diminished bowel sounds; Absent distended Additional comments: no oozing from incision, but otherwise unremarkable; few active bowel sounds; Extremities Exam Extremities exam: Present full ROM, normal inspection and neurovascular intact; Absent pedal edema Back Exam Back exam: Present full ROM and normal inspection Neurological Exam Neurological exam: Present CN II-XII intact, normal gait, oriented X3 and reflexes normal Psychiatric Psychiatric exam: Present normal affect and normal mood Skin Skin exam: Present normal color A/P Assessment and plan (1) Cellulitis, abdominal wall: Status: Acute (2) Postoperative hemorrhage: Status: Acute Qualifiers: Surgical complication system/body Area: digestive system Procedure type: digestive system Qualified Code(s): K91.840 - Postprocedural hemorrhage of a digestive system organ or structure following a digestive system procedure (3) Perforation of colon as colonoscopy complication: Status: Acute Time Spent With Patient Time: Total time spent is greater than 50% in coordination of care (as documented) at patient's floor/unit and/or counseling patient:
[2020-04-14] MEDS: PHYTONADIONE 10 MG/ML AMPUL SQ SCH (14:37)
[2020-04-14] MEDS ORDERED: 0.9 % SODIUM CHLORIDE 10 ML SYRINGE IV PRN (17:46)
[2020-04-15] MEDS: PHYTONADIONE 10 MG/ML AMPUL SQ SCH (01:58)
[2020-04-15] MEDS: metroNIDAZOLE 500 MG/100 ML BAG IV SCH ×4 (01:59→20:08)
[2020-04-15] MEDS: oxyCODONE HCL 5 MG TABLET PO PRN ×5 (03:21→23:11)
[2020-04-15] MEDS: MEROPENEM 1 GM in 0.9 % SODIUM CHLORIDE 100 ML IV SCH ×3 (05:28→22:10)
[2020-04-15] MEDS: METOCLOPRAMIDE 10 MG/2 ML VIAL IV SCH ×4 (05:28→23:54)
[2020-04-15] MEDS: 0.9 % SODIUM CHLORIDE 10 ML SYRINGE IV SCH ×5 (05:37→22:05)
[2020-04-15 06:45] LABS: ALT/SGPT 15 U/L (<40); AST/SGOT 23 U/L (<40); Albumin 2.2 gm/dL (3.2-5.2); Albumin/Globulin Ratio 0.8 (1.0-2.3); Alkaline Phosphatase 60 U/L (39-117); Basophils # (Auto) 0.05 K/mcL (0.00-0.20); Basophils % (Auto) 0.4 % (0.0-2.0); Bilirubin,Direct < 0.2 mg/dL (<0.3); Bilirubin,Total 0.4 mg/dL (0.1-1.0); Blood Urea Nitrogen 12 mg/dL (8-23); Calcium 7.6 mg/dL (8.6-10.4); Carbon Dioxide 23 mmol/L (22-30); Chloride 107 mmol/L (96-108); Eosinophils # (Auto) 0.27 K/mcL (0.00-0.70); Eosinophils % (Auto) 2.4 % (0.0-7.0); Globulin 2.7 gm/dL (2.2-3.7); Glomerular Filtration Rate 92; Glucose 108 mg/dL (70-105); Hematocrit 34.5 % (41.0-55.0); Hemoglobin 11.1 g/dL (13.5-16.5); Lactate Dehydrogenase 221 U/L (135-225); Lymphocytes # (Auto) 0.98 K/mcL (1.50-4.80); Lymphocytes % (Auto) 8.6 % (15.0-49.0); Mean Corpuscular HGB Conc 32.2 g/dL (31.0-36.0); Monocytes # (Auto) 0.68 K/mcL (0.10-0.90); Neutrophils % (Auto) 82.6 % (38.0-78.0); Phosphorous 2.5 mg/dL (2.5-4.5); Platelet Count 289 K/mcL (140-440); RBC 3.79 M/mcL (4.50-5.90); Red Cell Distribution Width 13.7 % (11.5-14.5); Triglycerides 83 mg/dL (<150); Uric Acid 3.6 mg/dL (2.5-8.0); WBC 11.3 K/mcL (4.5-11.0)
[2020-04-15] MEDS: PANTOPRAZOLE 40 MG VIAL IV SCH ×2 (07:32→18:22)
[2020-04-15] MEDS: VANCOMYCIN 1,500 MG in 0.9 % SODIUM CHLORIDE 500 ML IV SCH ×2 (09:44→21:19)
--- NOTE | 2020-04-15 11:01 | XRay Report ---
HISTORY: PICC line insertion FINDINGS: A PICC line has been inserted through the right arm. The tip is near the boundary of the superior vena cava and right atrium. There is no widening of the mediastinum, pneumothorax or pleural effusion. The lungs are clear. Heart size is borderline enlarged but magnified. There is an abdominal surgical drain seen with the tip in the epigastrium. IMPRESSION: Well-positioned PICC line. Nursing was called with results Interpreted and Authenticated by: Dylan Rg 04/15/20
--- NOTE | 2020-04-15 14:42 | General Surgery Progress Note ---
SUBJECTIVE Subjective Patient information: Note initiated : 04/15/20 at 2:36 pm Service Date, if different from initiated Date: [] Patient: Felix Mancera 59 y/o M admitted on 04/05/20 for Colonoscopy. Chief Complaint: [] Principal diagnosis: supraventricular tachycardia Interval history: patient had PICC line placed and developed SVT with heart rate about 150. He did not have any chest pain, and he states that he feels well at this time. He denies shortness of breath. Heart rate is 96 and O2 sat 94% on room air. White blood count 11.3, hemoglobin 11.1, hematocrit 34.5. Constitutional Vitals: Vital Signs Temp Pulse Resp BP Pulse Ox 98.9 F 91 H 18 138/85 95 04/15/20 13:25 04/15/20 13:25 04/15/20 13:25 04/15/20 13:25 04/15/20 13:25 Period Temp Pulse Resp BP Sys/Kimble Pulse Ox Last 24 Hr 97.9 F-99.2 F 82-103 - 114-152/69-91 92-98 Intake and Output 04/15/20 04/15/20 04/15/20 05:59 13:59 21:59 Intake Total 900 1180 860 Output Total 935 800 Balance -35 1180 60 Weight 219 lb 11.2 oz Intake & Output: Intake & Output 04/15/20 04/15/20 04/15/20 05:59 13:59 21:59 Intake Total 900 1180 860 Output Total 935 800 Balance -35 1180 60 Weight 219 lb 11.2 oz Intake: IV 700 700 Merrem 1 gm In Sodium Chloride 100 100 0.9% 100 ml @ 100 mls/hr IV Q8H [facility] Rx#:[id number] Vancomycin 1,500 mg In Sodium 500 500 Chloride 0.9% 500 ml @ 333.3 mls/hr IV Q12H [facility] Rx#: [id number] Oral 200 480 860 Output: Drainage 35 Left HEATHER Drain 15 Right HEATHER Drain 20 Void Amount 900 800 Other: Meal Breakfast Lunch Percent of Meal Consumed 75% 75% Feeding Ability Independent Independent Urine Appearance Clear Clear Urine Color Bright Yellow Bright Yellow Urine Odor Normal Stool Size Small Stool Color Brown Stool Consistency Soft Loose # Voids 1 # Bowel Movements 1 Head Head exam: Present atraumatic, normal inspection and normocephalic Eye Eye exam: Present EOMI Pupils: Present PERRL ENT ENT exam: Present mucous membranes moist, normal exam and normal oropharynx Neck Neck exam: Present full ROM and normal inspection Respiratory Respiratory exam: Present normal respiratory exam; Absent rales, rhonchi and wheezes Cardiovascular Cardiovascular exam: Present RRR and tachycardia (heart rate 96); Absent JVD GI/Abdominal GI/Abdominal exam: Present normal bowel sounds, soft and diminished bowel sounds; Absent distended Additional comments: no oozing from incision, but otherwise unremarkable; few active bowel sounds; Extremities Exam Extremities exam: Present full ROM, normal inspection and neurovascular intact; Absent pedal edema Neurological Exam Neurological exam: Present CN II-XII intact, normal gait, oriented X3 and reflexes normal Psychiatric Psychiatric exam: Present normal affect and normal mood Skin Skin exam: Present normal color A/P Assessment and plan (1) Supraventricular tachycardia: Status: Acute (2) Cellulitis, abdominal wall: Status: Acute (3) Postoperative hemorrhage: Status: Acute Qualifiers: Surgical complication system/body Area: digestive system Procedure type: digestive system Qualified Code(s): K91.840 - Postprocedural hemorrhage of a digestive system organ or structure following a digestive system procedure (4) Perforation of colon as colonoscopy complication: Status: Acute Narrative A/P Narrative: EKG every 8 hours 3. Troponin every 6 hours 3. Delayed discharge. Culture of serous drainage from incision Time Spent With Patient Time: Total time spent is greater than 50% in coordination of care (as documented) at patient's floor/unit and/or counseling patient:
[2020-04-16] MEDS: metroNIDAZOLE 500 MG/100 ML BAG IV SCH ×3 (02:05→14:05)
[2020-04-16] MEDS: oxyCODONE HCL 5 MG TABLET PO PRN ×3 (03:22→14:39)
[2020-04-16] MEDS: MEROPENEM 1 GM in 0.9 % SODIUM CHLORIDE 100 ML IV SCH ×2 (05:47→14:05)
[2020-04-16] MEDS: 0.9 % SODIUM CHLORIDE 10 ML SYRINGE IV SCH ×3 (05:48→14:05)
[2020-04-16] MEDS: METOCLOPRAMIDE 10 MG/2 ML VIAL IV SCH ×3 (05:48→17:11)
[2020-04-16] MEDS: PANTOPRAZOLE 40 MG VIAL IV SCH ×2 (08:48→17:11)
[2020-04-16] MEDS: VANCOMYCIN 1,500 MG in 0.9 % SODIUM CHLORIDE 500 ML IV SCH (08:48)
[2020-04-16] MEDS ORDERED: VANCOMYCIN PER PHARMACY IV SCH (13:33)
--- NOTE | 2020-04-16 15:21 | Discharge Summary ---
Discharge Provider Provider Patient information: Note initiated : 04/16/20 at 3:18 pm Service Date, if different from initiated Date: [] Patient: Felix Mancera 59 y/o M admitted on 04/05/20 for Colonoscopy. Chief Complaint: [] Date of admission: 04/05/20 22:47 Discharge date: 04/16/20 Primary care physician: Katie Diane Admitting clinician: Rosario Hung Attending physician on discharge: Rosario Hung Discharging clinician: Rosario Hung COURSE Hospital Course Hospital course: 59-year-old male who sustained an inadvertent perforation of the cecum While undergoing colonoscopy with polypectomy. He complained of increased abdominal distention and pain. CT confirmed massive free air. He was taken to the operating room where he was found to have perforated cecum with contamination in the right lower quadrant and small amount of drainage in the pelvis. The area was copiously irrigated and a primary anastomosis was done. The surgery progressed uneventfully. The patient developed increased drainage from his drain in the right lower quadrant with over 600 cc of pure blood over 6 hours. He was reexplored and was noted to have massive hemoperitoneum with loud throughout his peritoneal cavity. Even in areas where no surgery had been done. He had mostly poorly developed clots and lots of free blood in the upper abdomen. Thorough evaluation of the operative site did not reveal any venous or arterial bleeds. The mesentery of the right colon was explored and there was no evidence of bleeding in this area. The anastomosis was intact and actually there was no blood immediately associated with the anastomosis. Thorough irrigation of the entire abdomen was carried out. Evaluation of the colon reveal areas of ecchymosis and induration of the antimesenteric border in the splenic flexure, transverse colon and hepatic flexure. However, there was no fresh bleeding in this area. The spleen was explored and there was no evidence of splenic injury. The findings suggest that the patient may have a clotting diathesis. It was noted that he had PT of 16.7 with an INR of 1.6. Platelets were also decreased. He was transfused initially with O- blood and then with type specific blood to a hemoglobin above 10 since his starting hemoglobin was 16. Workup for clotting diathesis including von Willebrand's factor, vitamin K level, factor VIII level and PT, PTT and INR were ordered. Drains were placed in the splenic flexure and in the right gutter extending up to the hepatic flexure and down into the pelvis. He did not have any further evidence of bleeding. However, on the . His incision drained bloody purulent looking fluid which was cultured but the results were never retrieved. He was switched to meropenem and vancomycin. There was evidence of cellulitis of his abdominal wall at that time. His white blood count was 11.3 and his hemoglobin was 11.1. He remained stable for 4 days and there was slight increase in white blood count to 14.8. His incision was monitored and repeat cultures were done. Gram stain on the repeat Cultures did not show any bacteria. Patient had good return of intestinal function and is now tolerating a regular diet. He still has some erythema of his incision, but the drainage is primarily serous. The only portion of the clotting workup was vitamin K level of 56 which is very low. He was given 2 doses of AquaMEPHYTON 10 mg and we will follow-up his hemoglobin and the results of the factor VIII and von Willebrand's factor as an outpatient. Arrangements have been made for him to receive 2 more weeks of vancomycin and oral Levaquin. Patient had an episode of supraventricular tachycardia with heart rate of 151 yesterday. Troponins were negative 3. An EKG was normal 2. He has not had any other tachycardia and he has been very active on the mena. Patient is stable for discharge home and he will have vancomycin IV and Levaquin by mouth as an outpatient for the next 2 weeks. Discharge diagnosis: cecal perforation as a complication of colonoscopy Secondary discharge diagnosis: postoperative massive hemoperitoneum without obvious source. Vitamin K deficiency. Thrombocytopenia. Superficial incision infection. Final cultures pending Reason for admission: cecal perforation Procedures: exploratory laparotomy with right colectomy. March Exploratory laparotomy with evacuation of massive hemoperitoneum March 2020 Pertinent studies/significant findings: none Complications: postoperative massive hemoperitoneum, etiology never determined Time Spent with Patient Time attestation: Total time spent providing and/or coordinating discharge services: Physical Examination Vital Signs Vital signs: Temp Pulse Resp BP Pulse Ox 98.5 F 89 18 113/67 94 04/16/20 14:49 04/16/20 14:49 04/16/20 14:49 04/16/20 14:49 04/16/20 14:49 General physical appearance General physical exam: well developed, well nourished, severe distress and severe pain Eyes Eye exam: PERRL and normal ocular movement ENT ENT exam: normal pinna, normal nares, normal mucosa and decreased hearing Neck Neck exam: no masses, no bruits, trachea midline, no lymphadenopathy and no venous distension Cardiovascular Cardiovascular exam IM: Present normal rate and rhythm, RRR, +S1 and +S2; Absent gallop and JVD Abdomen Abdomen: Present tender and guarding (diffusely distended abdomen with tenderness and guarding and hypoactive bowel sounds) Integumentary Integumentary: Present no rash, no growths and no abnormal pigmentation Neurologic Neurologic: Present normal coordination and normal sensation Musculoskeletal Musculoskeletal: Present normal gait and normal posture Psychiatric Psychiatric: Present oriented to time, oriented to person, oriented to place, speech is normal and memory intact Discharge Plan Patient/Caregiver Discharge Instructions Activity: increase activity as tolerated Diet: Regular Diet Prescriptions: New oxycodone-acetaminophen [Endocet] 10-325 mg Tablet 1 tab PO Q4H PRN (Reason: Pain) Qty: 60 RF: 0 levofloxacin [levofloxacin] 750 MG tablet 750 mg PO DAILY Qty: 14 RF: 0 vancomycin in 0.9 % sodium chl 1.5 gram/250 mL solution 1.5 g IV Q12H 14 Days Qty: 7000 RF: 0 Continued alprazolam 0.5 mg tablet 0.5 mg PO TID PRN (Reason: anxiety) Qty: 60 RF: 5 testosterone 50 mg/5 gram (1 %) gel 1 packet TRANSDERMA QAM Qty: 60 RF: 5 levothyroxine 88 mcg tablet 88 mcg PO QDAY Qty: 90 RF: 3 vitamin E 200 unit capsule 200 unit PO QDAY RF: 0 atorvastatin 10 mg tablet 10 mg PO QDAY Qty: 90 RF: 3 bupropion HCl 150 mg tablet extended release 150 mg PO QDAY Qty: 90 RF: 3 Follow Up Plan Follow up with: Rosario Hung MD [Physician] - (Appointment in 1 week in the office) Patient Disposition: Home, Self-Care Prognosis: Good Rehab Potential: Good I certify that the patient requires SNF services: No Overall status at discharge: patient is progressing back to baseline Discharge Orders: Discharge Order (Routine); Ordered 04/16/20 Ordered By: Rosario Hung Pending Pending Pending: Resuscitation Status Full Code Diet Regular Diet Start WedApr 12 1421 Heparin Sodium (Porcine) (Heparin 10 Units/Ml Flush) 2 ml IV Q12 NACHO Last Admin: 04/16/20 08:49 Dose: 2 ml Documented by: Admin: 04/15/20 22:05 Dose: 2 ml Documented by: Admin: 04/15/20 13:07 Dose: 2 ml Documented by: Admin: 04/15/20 09:44 Dose: Not Given Documented by: Admin: 04/14/20 21:35 Dose: Not Given Documented by: JACKIE Hydromorphone HCl (Dilaudid) 1 mg IV Q2HP PRN; Protocol PRN Reason: Per Pain Protocol Last Admin: 04/13/20 18:08 Dose: 1 mg Documented by: Admin: 04/13/20 07:41 Dose: 1 mg Documented by: Admin: 04/13/20 03:28 Dose: 1 mg Documented by: [email or web address] Admin: 04/12/20 22:47 Dose: 1 mg Documented by: [email or web address] Admin: 04/12/20 17:31 Dose: 1 mg Documented by: Admin: 04/12/20 13:47 Dose: 1 mg Documented by: Admin: 04/11/20 20:37 Dose: 1 mg Documented by: Admin: 04/11/20 17:39 Dose: 1 mg Documented by: Admin: 04/11/20 14:17 Dose: 1 mg Documented by: [email or web address] Admin: 04/11/20 11:14 Dose: 1 mg Documented by: [email or web address] Admin: 04/11/20 06:24 Dose: 1 mg Documented by: Admin: 04/11/20 04:04 Dose: 1 mg Documented by: Admin: 04/11/20 00:13 Dose: 1 mg Documented by: Admin: 04/10/20 21:54 Dose: 1 mg Documented by: Admin: 04/10/20 18:32 Dose: 1 mg Documented by: Admin: 04/10/20 15:00 Dose: 1 mg Documented by: Admin: 04/10/20 10:53 Dose: 1 mg Documented by: Admin: 04/10/20 08:18 Dose: 1 mg Documented by: Admin: 04/10/20 05:41 Dose: 1 mg Documented by: Admin: 04/10/20 01:06 Dose: 1 mg Documented by: Admin: 04/09/20 21:32 Dose: 1 mg Documented by: Admin: 04/09/20 15:31 Dose: 1 mg Documented by: Admin: 04/09/20 09:12 Dose: 1 mg Documented by: Admin: 04/09/20 07:06 Dose: 1 mg Documented by: Admin: 04/09/20 02:17 Dose: 1 mg Documented by: Admin: 04/08/20 22:17 Dose: 1 mg Documented by: Admin: 04/08/20 19:05 Dose: 1 mg Documented by: Admin: 04/08/20 14:56 Dose: 1 mg Documented by: Admin: 04/08/20 11:44 Dose: 1 mg Documented by: Admin: 04/08/20 08:17 Dose: 1 mg Documented by: Admin: 04/08/20 04:04 Dose: 1 mg Documented by: Admin: 04/07/20 23:17 Dose: 1 mg Documented by: Admin: 04/07/20 17:00 Dose: 1 mg Documented by: Admin: 04/07/20 13:50 Dose: 1 mg Documented by: Admin: 04/07/20 09:37 Dose: 1 mg Documented by: GENIA Acetaminophen (Ofirmev) 1,000 mg in 100 mls @ 200 mls/hr IV Q6HP PRN; Protocol PRN Reason: PAIN/FEVER > 101 Last Infusion: 04/11/20 19:15 Dose: 0 mls/hr Documented by: [email or web address] Admin: 04/11/20 18:40 Dose: 200 mls/hr Documented by: Infusion: 04/11/20 08:27 Dose: 0 mls/hr Documented by: [email or web address] Admin: 04/11/20 07:47 Dose: 3 mls/hr Documented by: [email or web address] Infusion: 04/11/20 01:45 Dose: 0 mls/hr Documented by: [email or web address] Admin: 04/11/20 01:09 Dose: 200 mls/hr Documented by: Infusion: 04/10/20 19:38 Dose: 200 mls/hr Documented by: Admin: 04/10/20 19:08 Dose: 200 mls/hr Documented by: Infusion: 04/10/20 11:24 Dose: 200 mls/hr Documented by: Admin: 04/10/20 10:54 Dose: 200 mls/hr Documented by: Infusion: 04/10/20 04:00 Dose: 200 mls/hr Documented by: Admin: 04/10/20 03:30 Dose: 200 mls/hr Documented by: Infusion: 04/09/20 20:20 Dose: 200 mls/hr Documented by: Admin: 04/09/20 19:50 Dose: 200 mls/hr Documented by: Infusion: 04/09/20 18:12 Dose: 0 mls/hr Documented by: Admin: 04/09/20 12:58 Dose: 200 mls/hr Documented by: Infusion: 04/09/20 06:23 Dose: 200 mls/hr Documented by: Admin: 04/09/20 05:53 Dose: 200 mls/hr Documented by: Infusion: 04/08/20 23:41 Dose: 200 mls/hr Documented by: Admin: 04/08/20 23:11 Dose: 200 mls/hr Documented by: Infusion: 04/08/20 16:45 Dose: 0 mls/hr Documented by: Admin: 04/08/20 14:57 Dose: 200 mls/hr Documented by: Infusion: 04/07/20 23:54 Dose: 200 mls/hr Documented by: Admin: 04/07/20 23:24 Dose: 200 mls/hr Documented by: Infusion: 04/07/20 17:51 Dose: 0 mls/hr Documented by: Admin: 04/07/20 17:01 Dose: 200 mls/hr Documented by: Infusion: 04/07/20 11:15 Dose: 0 mls/hr Documented by: Admin: 04/07/20 09:37 Dose: 200 mls/hr Documented by: GENIA Metronidazole (Flagyl) 500 mg in 100 mls @ 100 mls/hr IV Q6H NACHO; Protocol Last Admin: 04/16/20 14:05 Dose: 100 mls/hr Documented by: Infusion: 04/16/20 09:48 Dose: 0 mls/hr Documented by: Admin: 04/16/20 08:48 Dose: 100 mls/hr Documented by: Infusion: 04/16/20 03:05 Dose: 100 mls/hr Documented by: Admin: 04/16/20 02:05 Dose: 100 mls/hr Documented by: Infusion: 04/15/20 21:08 Dose: 100 mls/hr Documented by: Admin: 04/15/20 20:08 Dose: 100 mls/hr Documented by: Infusion: 04/15/20 16:41 Dose: 0 mls/hr Documented by: Admin: 04/15/20 15:41 Dose: 100 mls/hr Documented by: Infusion: 04/15/20 08:32 Dose: 0 mls/hr Documented by: Admin: 04/15/20 07:32 Dose: 100 mls/hr Documented by: Infusion: 04/15/20 02:59 Dose: 0 mls/hr Documented by: Admin: 04/15/20 01:59 Dose: 100 mls/hr Documented by: Infusion: 04/14/20 21:10 Dose: 0 mls/hr Documented by: Admin: 04/14/20 20:10 Dose: 100 mls/hr Documented by: Infusion: 04/14/20 16:58 Dose: 0 mls/hr Documented by: Admin: 04/14/20 15:58 Dose: 100 mls/hr Documented by: Infusion: 04/14/20 08:43 Dose: 0 mls/hr Documented by: Admin: 04/14/20 07:43 Dose: 100 mls/hr Documented by: Infusion: 04/14/20 02:58 Dose: 0 mls/hr Documented by: Admin: 04/14/20 01:58 Dose: 100 mls/hr Documented by: Infusion: 04/13/20 21:51 Dose: 0 mls/hr Documented by: Admin: 04/13/20 19:47 Dose: 100 mls/hr Documented by: Infusion: 04/13/20 14:52 Dose: 0 mls/hr Documented by: Admin: 04/13/20 13:52 Dose: 100 mls/hr Documented by: Infusion: 04/13/20 08:41 Dose: 0 mls/hr Documented by: Admin: 04/13/20 07:41 Dose: 100 mls/hr Documented by: Infusion: 04/13/20 04:52 Dose: 0 mls/hr Documented by: Admin: 04/13/20 01:45 Dose: 100 mls/hr Documented by: Infusion: 04/12/20 21:35 Dose: 0 mls/hr Documented by: Admin: 04/12/20 20:05 Dose: 100 mls/hr Documented by: Infusion: 04/12/20 14:43 Dose: 0 mls/hr Documented by: Admin: 04/12/20 13:41 Dose: 100 mls/hr Documented by: [email or web address] Infusion: 04/12/20 10:08 Dose: 0 mls/hr Documented by: [email or web address] Admin: 04/12/20 09:04 Dose: 100 mls/hr Documented by: [email or web address] Infusion: 04/12/20 04:30 Dose: 0 mls/hr Documented by: [email or web address] Admin: 04/12/20 03:30 Dose: 100 mls/hr Documented by: Infusion: 04/11/20 21:30 Dose: 100 mls/hr Documented by: Admin: 04/11/20 20:30 Dose: 100 mls/hr Documented by: Infusion: 04/11/20 15:00 Dose: 0 mls/hr Documented by: [email or web address] Admin: 04/11/20 13:53 Dose: 100 mls/hr Documented by: [email or web address] Infusion: 04/11/20 09:56 Dose: 0 mls/hr Documented by: [email or web address] Admin: 04/11/20 08:06 Dose: 100 mls/hr Documented by: [email or web address] Infusion: 04/11/20 02:45 Dose: 0 mls/hr Documented by: [email or web address] Admin: 04/11/20 01:45 Dose: 100 mls/hr Documented by: Infusion: 04/10/20 21:25 Dose: 100 mls/hr Documented by: Admin: 04/10/20 20:25 Dose: 100 mls/hr Documented by: Infusion: 04/10/20 15:22 Dose: 100 mls/hr Documented by: Admin: 04/10/20 14:22 Dose: 100 mls/hr Documented by: Infusion: 04/10/20 11:02 Dose: 0 mls/hr Documented by: Admin: 04/10/20 07:06 Dose: 100 mls/hr Documented by: Infusion: 04/10/20 06:24 Dose: 0 mls/hr Documented by: Admin: 04/10/20 02:29 Dose: 100 mls/hr Documented by: Infusion: 04/09/20 22:25 Dose: 100 mls/hr Documented by: Admin: 04/09/20 21:25 Dose: 100 mls/hr Documented by: Infusion: 04/09/20 18:12 Dose: 0 mls/hr Documented by: Admin: 04/09/20 15:30 Dose: 100 mls/hr Documented by: Infusion: 04/09/20 13:29 Dose: 0 mls/hr Documented by: Admin: 04/09/20 07:07 Dose: 100 mls/hr Documented by: Infusion: 04/09/20 06:42 Dose: 0 mls/hr Documented by: Admin: 04/09/20 02:16 Dose: 100 mls/hr Documented by: Infusion: 04/08/20 21:17 Dose: 0 mls/hr Documented by: Admin: 04/08/20 20:17 Dose: 100 mls/hr Documented by: Infusion: 04/08/20 15:18 Dose: 100 mls/hr Documented by: Admin: 04/08/20 14:18 Dose: 100 mls/hr Documented by: Infusion: 04/08/20 13:39 Dose: 0 mls/hr Documented by: Admin: 04/08/20 07:49 Dose: 100 mls/hr Documented by: Infusion: 04/08/20 03:00 Dose: 100 mls/hr Documented by: Admin: 04/08/20 02:00 Dose: 100 mls/hr Documented by: Infusion: 04/07/20 20:42 Dose: 100 mls/hr Documented by: Admin: 04/07/20 19:42 Dose: 100 mls/hr Documented by: Infusion: 04/07/20 16:35 Dose: 0 mls/hr Documented by: Admin: 04/07/20 15:15 Dose: 100 mls/hr Documented by: Infusion: 04/07/20 09:55 Dose: 0 mls/hr Documented by: Admin: 04/07/20 08:23 Dose: 100 mls/hr Documented by: GENIA Vancomycin HCl 1,500 mg/ (Sodium Chloride) 500 mls @ 333.3 mls/hr IV Q12H NACHO Last Infusion: 04/16/20 10:19 Dose: 0 mls/hr Documented by: Admin: 04/16/20 08:48 Dose: 333.3 mls/hr Documented by: Infusion: 04/15/20 22:50 Dose: 333.3 mls/hr Documented by: Admin: 04/15/20 21:19 Dose: 333.3 mls/hr Documented by: Infusion: 04/15/20 11:15 Dose: 0 mls/hr Documented by: Admin: 04/15/20 09:44 Dose: 333 mls/hr Documented by: Infusion: 04/14/20 22:50 Dose: 0 mls/hr Documented by: Admin: 04/14/20 21:19 Dose: 333 mls/hr Documented by: Infusion: 04/14/20 12:03 Dose: 0 mls/hr Documented by: Admin: 04/14/20 10:32 Dose: 333 mls/hr Documented by: Infusion: 04/13/20 22:25 Dose: 0 mls/hr Documented by: Admin: 04/13/20 20:54 Dose: 333 mls/hr Documented by: Infusion: 04/13/20 12:21 Dose: 0 mls/hr Documented by: Admin: 04/13/20 10:50 Dose: 333 mls/hr Documented by: Infusion: 04/12/20 23:24 Dose: 0 mls/hr Documented by: [email or web address] Admin: 04/12/20 21:17 Dose: 333 mls/hr Documented by: Infusion: 04/12/20 13:00 Dose: 0 mls/hr Documented by: [email or web address] Admin: 04/12/20 11:02 Dose: 333 mls/hr Documented by: [email or web address] Infusion: 04/12/20 02:30 Dose: 0 mls/hr Documented by: [email or web address] Admin: 04/12/20 00:54 Dose: 333.3 mls/hr Documented by: Infusion: 04/11/20 17:58 Dose: 0 mls/hr Documented by: Admin: 04/11/20 15:59 Dose: 333.3 mls/hr Documented by: JAIRO Meropenem 1 gm/ Sodium (Chloride) 100 mls @ 100 mls/hr IV Q8H NACHO [facility] Admin: 04/16/20 14:05 Dose: 100 mls/hr Documented by: Infusion: 04/16/20 06:47 Dose: 0 mls/hr Documented by: Admin: 04/16/20 05:47 Dose: 100 mls/hr Documented by: Infusion: 04/15/20 23:10 Dose: 100 mls/hr Documented by: [email or web address] Admin: 04/15/20 22:10 Dose: 100 mls/hr Documented by: Infusion: 04/15/20 17:41 Dose: 0 mls/hr Documented by: Admin: 04/15/20 15:41 Dose: 100 mls/hr Documented by: Infusion: 04/15/20 06:28 Dose: 0 mls/hr Documented by: Admin: 04/15/20 05:28 Dose: 100 mls/hr Documented by: Infusion: 04/14/20 23:48 Dose: 0 mls/hr Documented by: Admin: 04/14/20 22:34 Dose: 100 mls/hr Documented by: Infusion: 04/14/20 15:37 Dose: 0 mls/hr Documented by: Admin: 04/14/20 14:37 Dose: 100 mls/hr Documented by: Infusion: 04/14/20 06:35 Dose: 0 mls/hr Documented by: Admin: 04/14/20 05:35 Dose: 100 mls/hr Documented by: Infusion: 04/13/20 23:55 Dose: 0 mls/hr Documented by: Admin: 04/13/20 21:55 Dose: 100 mls/hr Documented by: Infusion: 04/13/20 16:56 Dose: 0 mls/hr Documented by: Admin: 04/13/20 15:56 Dose: 100 mls/hr Documented by: Infusion: 04/13/20 06:19 Dose: 0 mls/hr Documented by: Admin: 04/13/20 05:19 Dose: 100 mls/hr Documented by: Infusion: 04/12/20 22:30 Dose: 0 mls/hr Documented by: Admin: 04/12/20 21:24 Dose: 100 mls/hr Documented by: Infusion: 04/12/20 15:20 Dose: 0 mls/hr Documented by: [email or web address] Admin: 04/12/20 14:43 Dose: 100 mls/hr Documented by: [email or web address] Infusion: 04/12/20 09:06 Dose: 0 mls/hr Documented by: [email or web address] Admin: 04/12/20 08:17 Dose: 100 mls/hr Documented by: [email or web address] Infusion: 04/12/20 03:30 Dose: 0 mls/hr Documented by: [email or web address] Admin: 04/12/20 02:30 Dose: 100 mls/hr Documented by: Infusion: 04/11/20 18:55 Dose: 100 mls/hr Documented by: Admin: 04/11/20 17:55 Dose: 100 mls/hr Documented by: [email or web address] Metoclopramide HCl (Reglan) 10 mg IV Q6 NACHO [facility] Admin: 04/16/20 14:04 Dose: 10 mg Documented by: Admin: 04/16/20 05:48 Dose: 10 mg Documented by: Admin: 04/15/20 23:54 Dose: 10 mg Documented by: Admin: 04/15/20 18:22 Dose: 10 mg Documented by: Admin: 04/15/20 12:54 Dose: 10 mg Documented by: Admin: 04/15/20 05:28 Dose: 10 mg Documented by: Admin: 04/14/20 23:47 Dose: 10 mg Documented by: Admin: 04/14/20 17:35 Dose: 10 mg Documented by: Admin: 04/14/20 12:16 Dose: 10 mg Documented by: Admin: 04/14/20 05:36 Dose: 10 mg Documented by: Admin: 04/13/20 23:52 Dose: 10 mg Documented by: Admin: 04/13/20 17:40 Dose: 10 mg Documented by: Admin: 04/13/20 12:23 Dose: 10 mg Documented by: Admin: 04/13/20 05:20 Dose: 10 mg Documented by: Admin: 04/12/20 23:40 Dose: 10 mg Documented by: Admin: 04/12/20 17:22 Dose: 10 mg Documented by: Admin: 04/12/20 12:35 Dose: 10 mg Documented by: Admin: 04/12/20 05:37 Dose: 10 mg Documented by: Admin: 04/12/20 00:30 Dose: 10 mg Documented by: Admin: 04/11/20 18:04 Dose: 10 mg Documented by: Admin: 04/11/20 13:50 Dose: 10 mg Documented by: [email or web address] Admin: 04/11/20 05:34 Dose: 10 mg Documented by: Admin: 04/11/20 00:12 Dose: 10 mg Documented by: Admin: 04/10/20 17:32 Dose: 10 mg Documented by: Admin: 04/10/20 12:14 Dose: 10 mg Documented by: Admin: 04/10/20 05:39 Dose: 10 mg Documented by: Admin: 04/09/20 23:49 Dose: 10 mg Documented by: Admin: 04/09/20 17:54 Dose: 10 mg Documented by: Admin: 04/09/20 13:29 Dose: 10 mg Documented by: Admin: 04/09/20 05:46 Dose: 10 mg Documented by: Admin: 04/08/20 23:55 Dose: 10 mg Documented by: Admin: 04/08/20 18:03 Dose: 10 mg Documented by: Admin: 04/08/20 13:50 Dose: 10 mg Documented by: Admin: 04/08/20 06:00 Dose: 10 mg Documented by: Admin: 04/07/20 23:31 Dose: 10 mg Documented by: Admin: 04/07/20 17:36 Dose: 10 mg Documented by: Admin: 04/07/20 12:32 Dose: 10 mg Documented by: GENIA Ondansetron HCl (Zofran) 4 mg IV Q6HP PRN PRN Reason: Nausea And Vomiting Last Admin: 04/09/20 15:31 Dose: 4 mg Documented by: GENIA Oxycodone HCl (Roxicodone) 10 mg PO Q4HP PRN; Protocol PRN Reason: Per Pain Protocol Last Admin: 04/16/20 14:39 Dose: 10 mg Documented by: Admin: 04/16/20 08:55 Dose: 10 mg Documented by: Admin: 04/16/20 03:22 Dose: 10 mg Documented by: Admin: 04/15/20 23:11 Dose: 10 mg Documented by: Admin: 04/15/20 18:23 Dose: 10 mg Documented by: Admin: 04/15/20 12:54 Dose: 10 mg Documented by: Admin: 04/15/20 07:33 Dose: 10 mg Documented by: Admin: 04/15/20 03:21 Dose: 10 mg Documented by: Admin: 04/14/20 22:44 Dose: 10 mg Documented by: Admin: 04/14/20 17:35 Dose: 10 mg Documented by: Admin: 04/14/20 12:16 Dose: 10 mg Documented by: Admin: 04/14/20 07:44 Dose: 10 mg Documented by: Admin: 04/14/20 03:34 Dose: 10 mg Documented by: Admin: 04/13/20 22:53 Dose: 10 mg Documented by: Admin: 04/13/20 13:53 Dose: 10 mg Documented by: UMER Pantoprazole Sodium (Protonix) 40 mg IV BIDAC [facility] Admin: 04/16/20 08:48 Dose: 40 mg Documented by: Admin: 04/15/20 18:22 Dose: 40 mg Documented by: Admin: 04/15/20 07:32 Dose: 40 mg Documented by: Admin: 04/14/20 17:35 Dose: 40 mg Documented by: Admin: 04/14/20 07:43 Dose: 40 mg Documented by: Admin: 04/13/20 17:40 Dose: 40 mg Documented by: Admin: 04/13/20 07:41 Dose: 40 mg Documented by: Admin: 04/12/20 17:41 Dose: 40 mg Documented by: Admin: 04/12/20 08:17 Dose: 40 mg Documented by: Admin: 04/11/20 18:04 Dose: 40 mg Documented by: [email or web address] Admin: 04/11/20 07:46 Dose: 40 mg Documented by: Admin: 04/10/20 17:32 Dose: 40 mg Documented by: Admin: 04/10/20 07:06 Dose: 40 mg Documented by: Admin: 04/09/20 16:46 Dose: 40 mg Documented by: Admin: 04/09/20 07:06 Dose: 40 mg Documented by: Admin: 04/08/20 18:03 Dose: 40 mg Documented by: Admin: 04/08/20 11:41 Dose: 40 mg Documented by: GENIA Sodium Chloride (Saline Flush) 10 ml IV Q8 [facility] Last Admin: 04/16/20 14:05 Dose: 10 ml Documented by: Admin: 04/16/20 05:48 Dose: 10 ml Documented by: Admin: 04/15/20 22:05 Dose: 10 ml Documented by: Admin: 04/15/20 15:41 Dose: 10 ml Documented by: Admin: 04/15/20 05:37 Dose: 10 ml Documented by: Admin: 04/14/20 23:48 Dose: 10 ml Documented by: Admin: 04/14/20 14:38 Dose: 10 ml Documented by: Admin: 04/14/20 05:18 Dose: Not Given Documented by: Admin: 04/13/20 21:51 Dose: Not Given Documented by: Admin: 04/13/20 15:57 Dose: 10 ml Documented by: Admin: 04/13/20 05:06 Dose: Not Given Documented by: Admin: 04/12/20 21:34 Dose: Not Given Documented by: Admin: 04/12/20 14:43 Dose: Not Given Documented by: Admin: 04/12/20 05:35 Dose: Not Given Documented by: Admin: 04/11/20 21:33 Dose: Not Given Documented by: Admin: 04/11/20 13:50 Dose: Not Given Documented by: Admin: 04/11/20 05:35 Dose: Not Given Documented by: Admin: 04/10/20 21:54 Dose: Not Given Documented by: Admin: 04/10/20 14:22 Dose: Not Given Documented by: Admin: 04/10/20 05:47 Dose: Not Given Documented by: Admin: 04/09/20 20:19 Dose: 10 ml Documented by: Admin: 04/09/20 13:56 Dose: Not Given Documented by: Admin: 04/09/20 05:47 Dose: Not Given Documented by: Admin: 04/08/20 20:18 Dose: Not Given Documented by: Admin: 04/08/20 14:19 Dose: Not Given Documented by: Admin: 04/08/20 06:00 Dose: 10 ml Documented by: Admin: 11/15/20 20:53 Dose: 10 ml Documented by: Admin: 04/07/20 15:15 Dose: Not Given Documented by: GENIA Sodium Chloride (Saline Flush) 10 ml IV Q12 [facility] Last Admin: 04/16/20 08:49 Dose: 10 ml Documented by: Admin: 04/15/20 22:05 Dose: 10 ml Documented by: Admin: 04/15/20 09:45 Dose: 10 ml Documented by: Admin: 04/14/20 21:36 Dose: 10 ml Documented by: JACKIE Shift Summary 04/16/20 03:52 Shift Summary by Katya Rice The patient is alert and oriented times four, he is up with minimal assist and requires SBA with the use of a FWW and gaitbelt to ambulate in the halls and restroom with IV pole assistance, estefany hose in place bilaterally. His two EKGs that have been completed thus far have been within normal limits and his serial Troponin have been less than 0.01 and no complaints of chest pain/pressure and VS WDL and on RA. Double lumen PICC to right upper arm patent and uses intermittently for antibiotics, tolerating PO well with no nausea, voids quantity sufficient. Dressing to midline abdomen had scant shadow drainage, 2 HEATHER sites draining serous fluid (left) and serosanguineous (right) with Mepilex border dressings CDI. Roxicodone given PO for c/o 6-7/10 abdominal pain every 4 hours with light snacks for prevention of GI upset and he tolerated this well and his pain was well palliated. Plan is to discharge to home with his spouse and receive outpatient ABO treatment. Will update shift summary report at bedside. Initialized on 04/16/20 03:52 - END OF NOTE
--- NOTE | 2020-04-22 14:12 | Operative Note ---
DATE OF OPERATION: 04/07/2020 PREOPERATIVE DIAGNOSES: Postoperative hemorrhage and hemorrhagic anemia. POSTOPERATIVE DIAGNOSES: Postoperative anemia with hemorrhagic anemia. PROCEDURE: Exploratory laparotomy with evacuation of 750 mL of clot. SURGEON: Rosario Hung M.D. FINDINGS: Major clot over the omentum in the lower abdomen, extending into the pelvis and into the right gutter. There was perihepatic clot over the right lobe of the liver. There was a small amount of unclotted blood in the left upper quadrant with a small amount around the spleen. The spleen was intact without any evidence of injury. The anastomosis was intact without bleeding near the anastomosis. There was moderate clot in the right gutter extending up to the hepatic flexure, but no fresh bleeding was encountered in any of these operative spaces. All of the spaces were explored, but no active bleeding was noted. The anastomosis was oversewn and the mesenteric defect closure was reinforced. All imelda and cauterized surfaces were sutured for assurance. The entire omentum was inspected and copiously irrigated. The right upper quadrant, right gutter, and left upper quadrant in the perisplenic area were drained. There was hemorrhagic induration of the antimesenteric surface of the splenic flexure of the colon in the area of the mid-sigmoid and transverse colon, but there was no jairo hematoma or active bleeding. The peritoneal cavity was totally explored for 2 hours without any finding of active venous or peritoneal or arterial bleeding. Once I was sure that there was no active bleeding, a final irrigation was carried out. The drains were brought out. The midline fascia was closed with #1 Prolene. Subcutaneous tissue was irrigated and closed with 2-0 Monocryl. Skin was closed with imelda. Drains were secured with 2-0 nylon. The incision was closed with large Tegaderm and the drains were covered with sponges and covered with Tegaderm. The patient tolerated the procedure well. He was hemodynamically stable throughout most of the procedure. He was awakened and transferred to the postanesthetic care unit in satisfactory condition. LCS:jamie Job ID: [id number] Doc ID: [id number] Rosario Hung M.D.
--- NOTE | 2020-04-22 16:16 | Operative Note ---
DATE OF OPERATION: 04/05/2020 PREOPERATIVE DIAGNOSIS: Cecal perforation. POSTOPERATIVE DIAGNOSIS: Cecal perforation. PROCEDURE: Right colectomy. SURGEON: Rosario Hung M.D. FINDINGS: Large perforation of the lateral cecum above the ileocecal valve. DESCRIPTION OF PROCEDURE: Under general anesthesia, the patient's abdomen was prepped and draped in a sterile field. A time-out procedure was carried out as per protocol. A midline incision was made. There was free escaping of air. This incision was extended more distally. A [place] retractor was placed. There was some infectious debris in the pelvis and right lower quadrant with a small amount of succuss entericus. There was also some bubbling of air in the lateral subperitoneal layer. The cecum was mobilized along its lateral attachments and a small amount of purulence was noted. This was mostly succuss entericus and probably irrigating fluid. Cultures were taken. Cecum was further mobilized over to the terminal ileum. Terminal ileum was divided at its junction with the cecum. The cecum was divided at about the mid ascending colon. The mesocolon was divided using the Voyant cautery device. A [id number] anastomosis was carried out using a ROBERT 55 and a TA 60 stapler. The staple lines were oversewn using running locking 2-0 Prolene. The mesenteric defect was closed with running locking 2-0 Monocryl. Copious irrigation was carried out. There was no other free peritoneal contamination. A #10 Glenn drain was placed and brought out in the left lower quadrant. Sponge, needle, instrument, and blade counts were verified as correct. The fascia was closed with #1 Prolene. The subcutaneous tissue was closed with 2-0 Vicryl. Skin was closed with imelda. The patient tolerated the procedure well. The drain was secured with 2-0 nylon. Tegaderm dressing was placed. The patient was awakened, transferred to a bed and taken to the postanesthetic care unit in stable, satisfactory condition. LCS:marie Job ID: [id number] Doc ID: [id number] Rosario Hung M.D.
== END 2020-04-16 17:45 | disposition home or self-care (01) | DRG 907 ==
LOC: SSSU 13:28 → MEDSUR 22:47
PROVIDERS: ADMIT Family Medicine Adult Medicine; ATTEND Family Medicine Adult Medicine